=== PATIENT | female | born 1970 | race Caucasian/White ===

== ENCOUNTER 2017-09-24 07:52 | Inpatient (IN) | payer BC, OTHER ==
--- NOTE | 2017-09-24 08:10 | PDOC ---
History of Present Illness <Melissa Estradael - Last Filed: 09/24/17 11:46> - History of Present Illness Initial Comments: 09/24/17 17:25 The patient is a 46 year old female with a significant PMH of lupus who presents to the emergency department with dizziness and nausea beginning at approximately since she woke up this morning. The patient describes the dizziness as if her head or the room is spinning around. She notes that her dizziness is aggravated by movement and has associated headache and nausea. She reports having about 4 or 5 episodes of dizziness and nausea in the past which she came to the ED for, but reports never staying for the full workup as she had no insurance and was concerned about costs. The patient reports not seeing a Neurologist for her symptoms. The patient denies any cold or infections but reports finishing a course of antibiotics about 2 weeks ago s/p tooth procedure. The patient denies chest pain, SOB. Denies fever, chills, nausea, vomit, diarrhea and constipation. Denies dysuria, frequency, urgency and hematuria. Allergies: Penicillins Past surgical history: None reported. Social history: No reported cigarette, alcohol, or drug use. PCP: Dr. Mathur <Gertrudis Wolff - Last Filed: 09/24/17 17:30> - General Chief Complaint: Lightheaded Stated Complaint: HEADACHE Time Seen by Provider: 09/24/17 08:10 NIH Stroke Scale - Last Known Well Date/Time & Onset Date Last Known Well: 09/23/17 Time Last Known Well: 23:00 - Initial Evaluation Level of consciousness: Alert Ask patient the month and their age: Answers both correctly Ask patient to open & close eyes; make fist and let go: Obeys both correctly Best gaze (horizontal eye movement): Normal Visual field testing: No visual field loss Facial paresis (Show teeth/raise eyebrows/close eyes tight): Normal symmetrical movement Motor Function: Left Arm: Normal Motor Function: Right Arm: Normal (extends arm 90 (or 45) degrees for 10 seconds without drift Motor Function: Left Leg: Normal (extends leg 30 degrees for 5 seconds without drift) Motor Function: Right Leg: Normal (extends leg 30 degrees for 5 seconds without drift) Limb Ataxia: Untestable (Joint fused or limb amputated), explain: (pt can not ambulate due to dizziness) Sensory(Use pinprick test arms,legs,trunk,face/side to side): Normal Best language (Describe picture, name items, read sentences): No Aphasia Dysarthria (read several words): Normal articulation Extinction and Inattention: No abnormality - Total Score NIH Stroke Scale Score: 0 <Gertrudis Wolff - Last Filed: 09/24/17 17:30> Past History <Pablo Estrada - Last Filed: 09/24/17 11:46> - Past Medical History COPD: No Other medical history: LUPUS - Surgical History Appendectomy: Yes - Suicide/Smoking/Psychosocial Hx Smoking History: Never smoked Have you smoked in the past 12 months: No Hx Alcohol Use: No Drug/Substance Use Hx: No Substance Use Type: None <Gertrudis Wolff - Last Filed: 09/24/17 17:30> - Past Medical History Allergies/Adverse Reactions: Allergies Allergy/AdvReac Type Severity Reaction Status Date / Time Penicillins Allergy Verified 09/24/17 07:57 Home Medications: Ambulatory Orders NK [No Known Home Medication] 09/24/17 Review of Systems - Review of Systems Comments:: 09/24/17 17:28 GENERAL/CONSTITUTIONAL: No fever or chills. No weakness. HEAD, EYES, EARS, NOSE AND THROAT: No change in vision. No ear pain or discharge. No sore throat. GASTROINTESTINAL: (+) Nausea. No vomiting, diarrhea or constipation. GENITOURINARY: No dysuria, frequency, or change in urination. CARDIOVASCULAR: No chest pain, SOB RESPIRATORY: No cough, wheezing, or hemoptysis. MUSCULOSKELETAL: No joint or muscle swelling or pain. No neck or back pain. SKIN: No rash NEUROLOGIC: (+) Headache. (+) Dizziness. No loss of consciousness or change in strength/sensation. ENDOCRINE: No increased thirst. No abnormal weight change. HEMATOLOGIC/LYMPHATIC: No anemia, easy bleeding, or history of blood clots. ALLERGIC/IMMUNOLOGIC: No hives or skin allergy. <Gertrudis Wolff - Last Filed: 09/24/17 17:30> *Physical Exam - Vital Signs Last Vital Signs Temp Pulse Resp BP Pulse Ox 98.0 F 80 18 132/90 100 09/24/17 07:55 09/24/17 08:52 09/24/17 08:52 09/24/17 08:52 09/24/17 08:52 <Pablo Estrada - Last Filed: 09/24/17 11:46> - Vital Signs Last Vital Signs Temp Pulse Resp BP Pulse Ox 98.0 F 75 20 142/81 100 09/24/17 07:55 09/24/17 07:55 09/24/17 07:55 09/24/17 07:55 09/24/17 07:55 - Physical Exam Comments: 09/24/17 17:29 GENERAL: Awake, alert, and fully oriented, appears uncomfortable HEAD: No signs of trauma EYES: PERRLA, EOMI, sclera anicteric, conjunctiva clear ENT: Auricles normal inspection, hearing grossly normal, nares patent, oropharynx clear without exudates. Moist mucosa NECK: Normal ROM, supple, no lymphadenopathy, JVD, or masses LUNGS: Breath sounds equal, clear to auscultation bilaterally. No wheezes, and no crackles HEART: Regular rate and rhythm, normal S1 and S2, no murmurs, rubs or gallops ABDOMEN: Soft, nontender, normoactive bowel sounds. No guarding, no rebound. No masses EXTREMITIES: Normal range of motion, no edema. No clubbing or cyanosis. No cords , erythema, or tenderness BACK: No midline spinal tenderness in cervical/thoracic/lumbar region NEUROLOGICAL: Normal speech, cranial nerves intact, negative pronator drift, 5/ 5 strength in all 4 extremities, normal sensation to light touch in all 4 extremities, normal cerebellar exam, normal reflexes and tone. SKIN: Warm, Dry, normal turgor, no rashes or lesions noted. Unable to obtain baljeet lemus pike as pt is vertiginous in all positions <Gertrudis Wolff - Last Filed: 09/24/17 17:30> ED Treatment Course - LABORATORY CBC & Chemistry Diagram: 09/24/17 08:45 09/24/17 08:45 - ADDITIONAL ORDERS Additional order review: Laboratory Results 09/24/17 09/24/17 09/24/17 08:45 08:45 08:37 Sodium 138 Potassium 3.5 Chloride 106 Carbon Dioxide 25 Anion Gap 7 L BUN 14 Creatinine 0.5 L Creat Clearance w eGFR > 60 Random Glucose 93 Calcium 8.2 L Total Bilirubin 0.4 D AST 13 L D ALT 23 D Alkaline Phosphatase 65 Troponin I < 0.02 B-Natriuretic Peptide 13.71 Cancelled Total Protein 7.2 Albumin 3.6 Beta HCG, Quant < 1.0 09/24/17 08:45 RBC 4.62 MCV 82.1 MCHC 32.9 RDW 14.1 MPV 10.5 Neutrophils % 73.9 Lymphocytes % 17.5 D Monocytes % 5.9 Eosinophils % 1.8 Basophils % 0.9 - Medications Given in the ED: ED Medications Discontinued Medications Generic Name Dose Route Start Last Admin Trade Name Michelle PRN Reason Stop Dose Admin Meclizine HCl 25 mg 09/24/17 08:36 09/24/17 08:51 Antivert - PO 09/24/17 08:37 25 mg ONCE ONE Administration Metoclopramide HCl 10 mg 09/24/17 08:36 09/24/17 08:52 Reglan Injection - IVPUSH 09/24/17 08:37 10 mg ONCE ONE Administration Sodium Chloride 1,000 ml 09/24/17 08:36 09/24/17 08:51 Normal Saline - IV 09/24/17 08:37 1,000 ml ONCE ONE Administration - Consult/PCP Time Called: 11:40 Case discussed with personal care physician: Krzysztof Mathur - Additional Consults Time Called: 11:30 Consult/PCP: Dr. Valentine (Neurology) <Pablo Estrada - Last Filed: 09/24/17 11:46> - LABORATORY CBC & Chemistry Diagram: 09/24/17 08:45 09/24/17 08:45 <Gertrudis Wolff - Last Filed: 09/24/17 17:30> Medical Decision Making - Medical Decision Making 09/24/17 10:41 46-year-old female with a history of lupus and multiple previous episodes of room spinning dizziness presents with room spinning dizziness upon waking up this morning. She states this episode is worse than her previous episodes. She also is reporting a headache. Vitals are unremarkable. On exam, the patient appears uncomfortable and has consistent dizziness regardless of position. Unclear if this is central or peripheral vertigo as patient has consistent symptoms in every position. Given that she also has lupus, she is at higher risk for ischemic events. Will attempt treatment for peripheral vertigo but we' ll have a low threshold for pursuing a neurologic workup for central etiology. 09/24/17 11:37 Labs unremarkable. Patient reports her symptoms are worse after fluids, Reglan, and meclizine. She continues to have consistent vertiginous symptoms. A CT scan was ordered that on my read appears normal. Given persistent symptoms and history of lupus, will consult neurology and likely order an MRI and admit the patient to observation. Dr. Valentine and Dr. Mathur have been paged, awaiting call back 09/24/17 11:[address] Valentine, he recommends an MRI without contrast and another dose of meclizine. MRI/meclizine ordered. Will also order another liter of NS. 09/24/17 11:[address] Mathur, will admit pt to tele for further management. Case discussed in detail with admitting physician including history, physical exam and ancillary studies. Admitting physician has assumed care for the patient, will follow all pending diagnostics and will complete the evaluation and treatment. <Gertrudis Wolff - Last Filed: 09/24/17 17:30> *DC/Admit/Observation/Transfer <Pablo Estrada - Last Filed: 09/24/17 11:46> - Discharge Dispostion Admit: Yes - Attestations Physician Attestion: 09/24/17 11:55 I, Dr. Gertrudis Wolff MD, attest that this document has been prepared under my direction and personally reviewed by me in its entirety. I further attest, that it accurately reflects all work, treatment, procedures and medical decision -making performed by me. <Gerrtudis Wolff - Last Filed: 09/24/17 17:30> Diagnosis at time of Disposition: Vertigo - Discharge Dispostion Condition at time of disposition: Stable
[2017-09-24] MEDS ORDERED: SODIUM CHLORIDE 0.9% 500 ML INFUS.BAG IV ONE ×2 (08:36→11:43)
[2017-09-24] MEDS ORDERED: MECLIZINE HCL 25 MG TABLET (FP) PO ONE ×2 (08:36→11:43)
[2017-09-24] MEDS ORDERED: METOCLOPRAMIDE HCL INJECTION 10 MG/2 ML VIAL IVPUSH ONE (08:36)
[2017-09-24] MEDS ORDERED: MECLIZINE HCL 25 MG TABLET (FP) ONE ×2 (08:47→11:53)
[2017-09-24] MEDS ORDERED: METOCLOPRAMIDE HCL INJECTION 10 MG/2 ML VIAL ONE (08:47)
[2017-09-24 08:59] LABS: BASO % 0.9 % (0-2.0); EOS % 1.8 % (0-4.5); MCHC 32.9 g/dl (32.0-36.0); MEAN CELL VOLUME 82.1 fl (80-96); MEAN PLT VOLUME 10.5 fl (7.5-11.1); NEUT % 73.9 % (42.8-82.8); RDW 14.1 % (11.6-15.6); WHITE BLOOD COUNT 5.6 K/mm3 (4.0-10.0)
[2017-09-24 09:11] LABS: PLATELET COUNT 35 K/MM3 (134-434)
[2017-09-24 09:17] LABS: ALBUMIN 3.6 g/dl (3.4-5.0); ANION GAP 7 (8-16); BILIRUBIN,TOTAL 0.4 mg/dL (0.2-1.0); CALCIUM 8.2 mg/dL (8.5-10.1); CO2 25 mmol/L (21-32); CREATININE 0.5 mg/dL (0.55-1.02); GLUCOSE,RANDOM 93 mg/dL (74-106); SGPT/ALT 23 U/L (12-78); TOT PROT 7.2 g/dl (6.4-8.2)
[2017-09-24 09:20] LABS: ALK PHOS 65 U/L (45-117); SGOT/AST 13 U/L (15-37); TROPONIN I < 0.02 ng/ml (0.00-0.05)
--- NOTE | 2017-09-24 13:20 | HP ---
Admitting History and Physical - Admission History of Present Illness: 46-year-old female with a history of lupus and multiple previous episodes of room spinning dizziness presents with room spinning dizziness upon waking up this morning. She states this episode is worse than her previous episodes. She also is reporting a headache. Vitals are unremarkable. On exam, the patient appears uncomfortable and has consistent dizziness regardless of position. Unclear if this is central or peripheral vertigo as patient has consistent symptoms in every position. Given that she also has lupus, she is at higher risk for ischemic events. Will attempt treatment for peripheral vertigo but we' ll have a low threshold for pursuing a neurologic workup for central etiology. - Past Medical History Cardiovascular: Yes: HTN Rheumatology: Yes: Lupus - Smoking History Smoking history: Never smoked Have you smoked in the past 12 months: No - Alcohol/Substance Use Hx Alcohol Use: No Home Medications - Allergies Allergies/Adverse Reactions: Allergies Allergy/AdvReac Type Severity Reaction Status Date / Time Penicillins Allergy Verified 09/24/17 07:57 - Home Medications Home Medications: Ambulatory Orders Acetaminophen [Tylenol .Extra-Strength -] 1,000 mg PO Q6H PRN tablet 09/27/17 Cyanocobalamin Vit B-12 Inj. [Vitamin B12 Injection -] 1,000 mcg IM DAILY vial 09/27/17 Triamcinolone 0.1% Ointment [Aristocort 0.1% Ointment -] 1 applic TP BID applic 09/27/17 Review of Systems - Review of Systems Cardiovascular: denies: Chest Pain Respiratory: denies: SOB Gastrointestinal: denies: Abdominal Pain Neurological: reports: Dizziness Physical Examination Vital Signs: Vital Signs Temperature 98.0 F 09/24/17 07:55 Pulse Rate 80 09/24/17 08:52 Respiratory Rate 18 09/24/17 08:52 Blood Pressure 132/90 09/24/17 08:52 O2 Sat by Pulse Oximetry (%) 100 09/24/17 08:52 Cardiovascular: Yes: Regular Rate and Rhythm Respiratory: Yes: Regular, CTA Bilaterally Gastrointestinal: Yes: Normal Bowel Sounds, Soft Edema: No Neurological: Yes: Alert, Oriented, Cran Nerves II-XII Intact. No: Facial Droop Labs: CBC, BMP 09/24/17 08:45 09/24/17 08:45 Imaging - Results Cat Scan: Report Reviewed Problem List - Problems (1) Lupus Assessment/Plan: obtain old records off meds for 3 years Code(s): L93.0 - DISCOID LUPUS ERYTHEMATOSUS (2) Vertigo Assessment/Plan: MECLIZINE MRI NEURO Code(s): R42 - DIZZINESS AND GIDDINESS (3) Headache Assessment/Plan: mri neuro Code(s): R51 - HEADACHE (4) Thrombocytopenia Assessment/Plan: monitor stay off ansaids hem consult b12 level Code(s): D69.6 - THROMBOCYTOPENIA, UNSPECIFIED
[2017-09-24] MEDS: D5-1/2NS+20 MEQ KCL - 20 MEQ/1,000 ML INFUS.BAG IV SCH (17:29)
[2017-09-24 17:48] VITALS: BMI 24.7
[2017-09-24 19:00] LABS: CPK 74 IU/L (26-192); TROPONIN I < 0.02 ng/ml (0.00-0.05)
[2017-09-24 20:28] LABS: URINE APPEARANCE CLEAR; URINE BILIRUBIN NEGATIVE (NEGATIVE); URINE BLOOD 1+ (NEGATIVE); URINE COLOR LTYELLOW; URINE GLUCOSE (UA) NEGATIVE (NEGATIVE); URINE KETONE NEGATIVE (NEGATIVE); URINE LEUK ESTERASE TRACE (NEGATIVE); URINE NITRITE NEGATIVE (NEGATIVE); URINE PROTEIN NEGATIVE (NEGATIVE); URINE UROBILINOGEN NEGATIVE mg/dL (0.2-1.0)
[2017-09-24 20:57] LABS: URINE MUCUS RARE; URINE RBC 2 /hpf (0-3); URINE WBC 3 /hpf (3-5)
[2017-09-24] MEDS: HEPARIN NA (PORCINE) 5,000 UNITS/ML 1ML VIAL SQ SCH (21:19)
[2017-09-24 23:37] LABS: URINE LEUK ESTERASE Negative (NEGATIVE)
[2017-09-25] MEDS: D5-1/2NS+20 MEQ KCL - 20 MEQ/1,000 ML INFUS.BAG IV SCH ×3 (06:07→18:01)
[2017-09-25 09:08] LABS: EOS % 3.8 % (0-4.5); MCH 27.2 pg (25.7-33.7); MCHC 32.8 g/dl (32.0-36.0); MEAN CELL VOLUME 82.9 fl (80-96); MEAN PLT VOLUME 11.4 fl (7.5-11.1); NEUT % 53.9 % (42.8-82.8); RDW 13.9 % (11.6-15.6); WHITE BLOOD COUNT 4.4 K/mm3 (4.0-10.0)
[2017-09-25 09:18] LABS: PLATELET COUNT 29 K/MM3 (134-434)
[2017-09-25 09:26] LABS: ALBUMIN 3.2 g/dl (3.4-5.0); ANION GAP 7 (8-16); BILIRUBIN,TOTAL 0.3 mg/dL (0.2-1.0); CALCIUM 7.6 mg/dL (8.5-10.1); CHOLESTEROL 158 mg/dL (50-200); CO2 23 mmol/L (21-32); CREATININE 0.5 mg/dL (0.55-1.02); GLUCOSE,RANDOM 88 mg/dL (74-106); SGOT/AST 14 U/L (15-37); SGPT/ALT 18 U/L (12-78); TOT PROT 6.5 g/dl (6.4-8.2)
[2017-09-25 09:27] LABS: ALK PHOS 61 U/L (45-117)
[2017-09-25] MEDS: HEPARIN NA (PORCINE) 5,000 UNITS/ML 1ML VIAL SQ SCH (09:31)
--- NOTE | 2017-09-25 12:13 | CONSULT ---
Consult - text type - Consultation Consultation Note: Neurology History of Present Illness The patient is a 46 year old female with a significant PMH of lupus who presents to the emergency department with dizziness and nausea beginning at approximately since she woke up this morning. The patient describes the dizziness as if her head or the room is spinning around. She notes that her dizziness is aggravated by movement and has associated headache and nausea. She reports having about 4 or 5 episodes of dizziness and nausea in the past which she came to the ED for, but reports never staying for the full workup as she had no insurance and was concerned about costs. The patient reports not seeing a Neurologist for her symptoms. The patient denies any cold or infections but reports finishing a course of antibiotics about 2 weeks ago s/p tooth procedure. she completed CT head which showed no acute changes. MRI brain also recommended when I spoke to ER and did not show acute changes. She is without dizzyness this morning but some tension headache symptoms in b/l frontal area. Also getting workup for abdominal discomfort. Past History - Past Medical History COPD: No Other medical history: LUPUS - Surgical History Appendectomy: Yes - Suicide/Smoking/Psychosocial Hx Smoking History: Never smoked Have you smoked in the past 12 months: No Hx Alcohol Use: No Drug/Substance Use Hx: No Substance Use Type: None - Past Medical History Allergies/Adverse Reactions: Allergies Allergy/AdvReac Type Severity Reaction Status Date / Time Penicillins Allergy Verified 09/24/17 07:57 Home Medications: Ambulatory Orders NK [No Known Home Medication] 09/24/17 Review of Systems GENERAL/CONSTITUTIONAL: No fever or chills. No weakness. HEAD, EYES, EARS, NOSE AND THROAT: No change in vision. No ear pain or discharge. No sore throat. GASTROINTESTINAL: (+) Nausea. No vomiting, diarrhea or constipation. GENITOURINARY: No dysuria, frequency, or change in urination. CARDIOVASCULAR: No chest pain, SOB RESPIRATORY: No cough, wheezing, or hemoptysis. MUSCULOSKELETAL: No joint or muscle swelling or pain. No neck or back pain. SKIN: No rash NEUROLOGIC: (+) Headache. (+) Dizziness. No loss of consciousness or change in strength/sensation. ENDOCRINE: No increased thirst. No abnormal weight change. HEMATOLOGIC/LYMPHATIC: No anemia, easy bleeding, or history of blood clots. ALLERGIC/IMMUNOLOGIC: No hives or skin allergy. *Physical Exam Vital Signs Temperature 98 F 09/25/17 10:00 Pulse Rate 70 09/25/17 10:00 Respiratory Rate 18 09/25/17 10:00 Blood Pressure 130/70 09/25/17 10:00 O2 Sat by Pulse Oximetry (%) 100 09/25/17 09:00 GENERAL: Awake, alert, and fully oriented, appears uncomfortable HEAD: No signs of trauma EYES: PERRLA, EOMI, sclera anicteric, conjunctiva clear ENT: Auricles normal inspection, hearing grossly normal, nares patent, oropharynx clear without exudates. Moist mucosa NECK: Normal ROM, supple, no lymphadenopathy, JVD, or masses LUNGS: Breath sounds equal, clear to auscultation bilaterally. No wheezes, and no crackles HEART: Regular rate and rhythm, normal S1 and S2, no murmurs, rubs or gallops ABDOMEN: Soft, nontender, normoactive bowel sounds. No guarding, no rebound. No masses EXTREMITIES: Normal range of motion, no edema. No clubbing or cyanosis. No cords , erythema, or tenderness BACK: No midline spinal tenderness in cervical/thoracic/lumbar region NEUROLOGICAL: Normal speech, cranial nerves intact, negative pronator drift, 5/ 5 strength in all 4 extremities, normal sensation to light touch in all 4 extremities, normal cerebellar exam, normal reflexes and tone. SKIN: Warm, Dry, normal turgor, no rashes or lesions noted. Unable to obtain baljeet lemus pike as pt is vertiginous in all positions Laboratory Results 09/24/17 09/24/17 09/24/17 08:45 08:45 08:37 Sodium 138 Potassium 3.5 Chloride 106 Carbon Dioxide 25 Anion Gap 7 L BUN 14 Creatinine 0.5 L Creat Clearance w eGFR > 60 Random Glucose 93 Calcium 8.2 L Total Bilirubin 0.4 D AST 13 L D ALT 23 D Alkaline Phosphatase 65 Troponin I < 0.02 B-Natriuretic Peptide 13.71 Cancelled Total Protein 7.2 Albumin 3.6 Beta HCG, Quant < 1.0 09/24/17 08:45 RBC 4.62 MCV 82.1 MCHC 32.9 RDW 14.1 MPV 10.5 Neutrophils % 73.9 Lymphocytes % 17.5 D Monocytes % 5.9 Eosinophils % 1.8 Basophils % 0.9 CBCD WBC 4.4 K/mm3 (4.0-10.0) 09/25/17 07:00 RBC 4.32 M/mm3 (3.60-5.2) 09/25/17 07:00 Hgb 11.8 GM/dL (10.7-15.3) 09/25/17 07:00 Hct 35.9 % (32.4-45.2) 09/25/17 07:00 MCV 82.9 fl (80-96) 09/25/17 07:00 MCHC 32.8 g/dl (32.0-36.0) 09/25/17 07:00 RDW 13.9 % (11.6-15.6) 09/25/17 07:00 Plt Count 29 K/MM3 (134-434) L* 09/25/17 07:00 MPV 11.4 fl (7.5-11.1) H 09/25/17 07:00 CMP Sodium 140 mmol/L (136-145) 09/25/17 07:00 Potassium 3.9 mmol/L (3.5-5.1) 09/25/17 07:00 Chloride 110 mmol/L (98-107) H 09/25/17 07:00 Carbon Dioxide 23 mmol/L (21-32) 09/25/17 07:00 Anion Gap 7 (8-16) L 09/25/17 07:00 BUN 7 mg/dL (7-18) D 09/25/17 07:00 Creatinine 0.5 mg/dL (0.55-1.02) L 09/25/17 07:00 Creat Clearance w eGFR > 60 (>60) 09/25/17 07:00 Calcium 7.6 mg/dL (8.5-10.1) L 09/25/17 07:00 Total Bilirubin 0.3 mg/dL (0.2-1.0) D 09/25/17 07:00 AST 14 U/L (15-37) L 09/25/17 07:00 ALT 18 U/L (12-78) D 09/25/17 07:00 Alkaline Phosphatase 61 U/L (45-117) 09/25/17 07:00 Total Protein 6.5 g/dl (6.4-8.2) 09/25/17 07:00 Albumin 3.2 g/dl (3.4-5.0) L 09/25/17 07:00 CT head reviewed MRI brain reviewed Medical Decision Making 46 year old female with a significant PMH of lupus who presents to the emergency department with dizziness and nausea beginning at approximately since she woke up this morning. The patient describes the dizziness as if her head or the room is spinning around. She notes that her dizziness is aggravated by movement and has associated headache and nausea. She reports having about 4 or 5 episodes of dizziness and nausea in the past which she came to the ED for, but reports never staying for the full workup as she had no insurance and was concerned about costs. MRI brain also recommended when I spoke to ER and did not show acute changes. She is without dizzyness this morning but some tension headache symptoms in b/l frontal area. Also getting workup for abdominal discomfort. Relaxation and hydration recommended for headache. Can give tylenol if does not interfere with GI workup. Meclezine as needed for dizzyness. No sudden head movements. Discussed with patient and in detail at bedside.
--- NOTE | 2017-09-25 12:20 | PN ---
Progress Note, Physician History of Present Illness: feels better vertigoresolved rt sided headache - Current Medication List Current Medications: Active Medications Acetaminophen (Tylenol -) 1,000 mg PO Q6H PRN PRN Reason: FEVER OR PAIN Potassium Chloride/Dextrose/Sod Cl (D5-1/2ns+20 Meq Kcl -) 20 meq in 1,000 mls @ 83 mls/hr IV ASDIR ROBYN Last Admin: 09/25/17 06:07 Dose: 83 mls/hr - Objective Vital Signs: Vital Signs Temperature 98 F 09/25/17 10:00 Pulse Rate 70 09/25/17 10:00 Respiratory Rate 18 09/25/17 10:00 Blood Pressure 130/70 09/25/17 10:00 O2 Sat by Pulse Oximetry (%) 100 09/25/17 09:00 Cardiovascular: Yes: Regular Rate and Rhythm Respiratory: Yes: Regular, CTA Bilaterally Gastrointestinal: Yes: Normal Bowel Sounds, Soft Extremities: Yes: Erythema Edema: No Labs: CBC, BMP 09/25/17 07:00 09/25/17 07:00 Problem List - Problems (1) Lupus Assessment/Plan: obtain old records off meds for 3 years rheumotology consult Code(s): L93.0 - DISCOID LUPUS ERYTHEMATOSUS (2) Vertigo Assessment/Plan: MECLIZINE MRI NO ACUTE PATH NEURO Code(s): R42 - DIZZINESS AND GIDDINESS (3) Headache Assessment/Plan: mri--nad neuro tylenol Code(s): R51 - HEADACHE (4) Thrombocytopenia Assessment/Plan: monitor hem consult avoid ansaids us of abd Code(s): D69.6 - THROMBOCYTOPENIA, UNSPECIFIED
[2017-09-25 13:04] LABS: THYROID STIMULATING HORMONE 1.17 uIU/ml (0.358-3.74)
[2017-09-25] MEDS: ACETAMINOPHEN 500 MG TABLET (FP) PO PRN ×2 (14:38→21:29)
[2017-09-25] MEDS: TRIAMCINOLONE ACET 0.1% OINT 15 GM TUBE TP SCH ×2 (15:43→21:32)
[2017-09-25 23:03] LABS: URINE APPEARANCE CLEAR; URINE BILIRUBIN NEGATIVE (NEGATIVE); URINE BLOOD 1+ (NEGATIVE); URINE COLOR STRAW; URINE GLUCOSE (UA) NEGATIVE (NEGATIVE); URINE KETONE NEGATIVE (NEGATIVE); URINE LEUK ESTERASE TRACE (NEGATIVE); URINE NITRITE NEGATIVE (NEGATIVE); URINE PROTEIN NEGATIVE (NEGATIVE); URINE UROBILINOGEN NEGATIVE mg/dL (0.2-1.0)
[2017-09-25 23:05] LABS: URINE MUCUS RARE; URINE RBC 1 /hpf (0-3); URINE WBC 1 /hpf (3-5)
--- NOTE | 2017-09-26 08:11 | PN ---
Progress Note, Physician History of Present Illness: feels better vertigo resolved rt sided headache - Current Medication List Current Medications: Active Medications Acetaminophen (Tylenol -) 1,000 mg PO Q6H PRN PRN Reason: FEVER OR PAIN Last Admin: 09/25/17 21:29 Dose: 1,000 mg Cyanocobalamin (Vitamin B12 Injection -) 1,000 mcg IM DAILY [facility] Triamcinolone Acetonide (Aristocort 0.1% Ointment -) 1 applic TP BID ROBYN Last Admin: 09/25/17 21:32 Dose: 1 applic - Objective Vital Signs: Vital Signs Temperature 97.9 F 09/26/17 05:00 Pulse Rate 80 09/26/17 05:00 Respiratory Rate 18 09/26/17 05:00 Blood Pressure 122/71 09/26/17 05:00 O2 Sat by Pulse Oximetry (%) 100 09/25/17 21:00 Cardiovascular: Yes: S1, S2 Respiratory: Yes: Regular, CTA Bilaterally Gastrointestinal: Yes: Normal Bowel Sounds, Soft Neurological: Yes: Alert, Oriented Labs: CBC, BMP 09/25/17 07:00 Problem List - Problems (1) Lupus Assessment/Plan: obtain old records off meds for 3 years rheumotolgy consult Code(s): L93.0 - DISCOID LUPUS ERYTHEMATOSUS (2) Vertigo Assessment/Plan: MECLIZINE MRI NEURO Code(s): R42 - DIZZINESS AND GIDDINESS (3) Headache Assessment/Plan: mri negative for acute ds neuro noted tylenol Code(s): R51 - HEADACHE (4) Thrombocytopenia Assessment/Plan: monitor stay off ansaids hem consult b12 level Code(s): D69.6 - THROMBOCYTOPENIA, UNSPECIFIED
[2017-09-26 08:12] LABS: EOS % 3.2 % (0-4.5); MCH 27.4 pg (25.7-33.7); MCHC 33.3 g/dl (32.0-36.0); MEAN CELL VOLUME 82.5 fl (80-96); MEAN PLT VOLUME 10.3 fl (7.5-11.1); NEUT % 60.4 % (42.8-82.8); PLATELET COUNT 38 K/MM3 (134-434); RDW 13.9 % (11.6-15.6); WHITE BLOOD COUNT 5.3 K/mm3 (4.0-10.0)
[2017-09-26 08:31] LABS: INR 1.13 (0.82-1.09); PROTHROMBIN TIME (PATIENT) 12.8 SEC (9.98-11.88)
[2017-09-26 08:33] LABS: ACTIVATED PTT 71.5 SECONDS (26.9-34.4)
[2017-09-26] MEDS: CYANOCOBALAMIN (VITAMIN B-12) 1000 MCG/1 ML VIAL IM SCH (09:31)
[2017-09-26] MEDS: TRIAMCINOLONE ACET 0.1% OINT 15 GM TUBE TP SCH ×2 (09:32→21:57)
--- NOTE | 2017-09-26 09:44 | PN ---
Progress Note (short form) - Note Progress Note: Neurology History of Present Illness The patient is a 46 year old female with a significant PMH of lupus who presents to the emergency department with dizziness and nausea beginning at approximately since she woke up this morning. The patient describes the dizziness as if her head or the room is spinning around. She notes that her dizziness is aggravated by movement and has associated headache and nausea. She reports having about 4 or 5 episodes of dizziness and nausea in the past which she came to the ED for, but reports never staying for the full workup as she had no insurance and was concerned about costs. The patient reports not seeing a Neurologist for her symptoms. The patient denies any cold or infections but reports finishing a course of antibiotics about 2 weeks ago s/p tooth procedure. she completed CT head which showed no acute changes. MRI brain also completed and did not show acute changes. She is without dizzyness this morning but some tension headache symptoms in b/l frontal area. Spoke to nurse as well and decreased platelet count, hematology consulted. Reviewed PCP note. Otherwise , stable neurologically at this time. Active Medications Acetaminophen (Tylenol -) 1,000 mg PO Q6H PRN PRN Reason: FEVER OR PAIN Last Admin: 09/25/17 21:29 Dose: 1,000 mg Cyanocobalamin (Vitamin B12 Injection -) 1,000 mcg IM DAILY [facility] Last Admin: 09/26/17 09:31 Dose: 1,000 mcg Triamcinolone Acetonide (Aristocort 0.1% Ointment -) 1 applic TP BID [facility] Last Admin: 09/26/17 09:32 Dose: 1 applic *Physical Exam Vital Signs Temperature 97.9 F 09/26/17 05:00 Pulse Rate 80 09/26/17 05:00 Respiratory Rate 18 09/26/17 05:00 Blood Pressure 122/71 09/26/17 05:00 O2 Sat by Pulse Oximetry (%) 100 09/25/17 21:00 GENERAL: Awake, alert, and fully oriented, appears uncomfortable HEAD: No signs of trauma EYES: PERRLA, EOMI, sclera anicteric, conjunctiva clear ENT: Auricles normal inspection, hearing grossly normal, nares patent, oropharynx clear without exudates. Moist mucosa NECK: Normal ROM, supple, no lymphadenopathy, JVD, or masses LUNGS: Breath sounds equal, clear to auscultation bilaterally. No wheezes, and no crackles HEART: Regular rate and rhythm, normal S1 and S2, no murmurs, rubs or gallops ABDOMEN: Soft, nontender, normoactive bowel sounds. No guarding, no rebound. No masses EXTREMITIES: Normal range of motion, no edema. No clubbing or cyanosis. No cords , erythema, or tenderness BACK: No midline spinal tenderness in cervical/thoracic/lumbar region NEUROLOGICAL: Normal speech, cranial nerves intact, negative pronator drift, 5/ 5 strength in all 4 extremities, normal sensation to light touch in all 4 extremities, normal cerebellar exam, normal reflexes and tone. SKIN: Warm, Dry, normal turgor, no rashes or lesions noted. Unable to obtain baljeet lemus pike as pt is vertiginous in all positions CBCD WBC 5.3 K/mm3 (4.0-10.0) 09/26/17 06:00 RBC 4.66 M/mm3 (3.60-5.2) 09/26/17 06:00 Hgb 12.8 GM/dL (10.7-15.3) 09/26/17 06:00 Hct 38.4 % (32.4-45.2) 09/26/17 06:00 MCV 82.5 fl (80-96) 09/26/17 06:00 MCHC 33.3 g/dl (32.0-36.0) 09/26/17 06:00 RDW 13.9 % (11.6-15.6) 09/26/17 06:00 Plt Count 38 K/MM3 (134-434) L D 09/26/17 06:00 MPV 10.3 fl (7.5-11.1) 09/26/17 06:00 CMP Sodium 140 mmol/L (136-145) 09/25/17 07:00 Potassium 3.9 mmol/L (3.5-5.1) 09/25/17 07:00 Chloride 110 mmol/L (98-107) H 09/25/17 07:00 Carbon Dioxide 23 mmol/L (21-32) 09/25/17 07:00 Anion Gap 7 (8-16) L 09/25/17 07:00 BUN 7 mg/dL (7-18) D 09/25/17 07:00 Creatinine 0.5 mg/dL (0.55-1.02) L 09/25/17 07:00 Creat Clearance w eGFR > 60 (>60) 09/25/17 07:00 Calcium 7.6 mg/dL (8.5-10.1) L 09/25/17 07:00 Total Bilirubin 0.3 mg/dL (0.2-1.0) D 09/25/17 07:00 AST 14 U/L (15-37) L 09/25/17 07:00 ALT 18 U/L (12-78) D 09/25/17 07:00 Alkaline Phosphatase 61 U/L (45-117) 09/25/17 07:00 Total Protein 6.5 g/dl (6.4-8.2) 09/25/17 07:00 Albumin 3.2 g/dl (3.4-5.0) L 09/25/17 07:00 CT head reviewed MRI brain reviewed Medical Decision Making 46 year old female with a significant PMH of lupus who presents to the emergency department with dizziness and nausea beginning at approximately since she woke up this morning. The patient describes the dizziness as if her head or the room is spinning around. She notes that her dizziness is aggravated by movement and has associated headache and nausea. She reports having about 4 or 5 episodes of dizziness and nausea in the past which she came to the ED for, but reports never staying for the full workup as she had no insurance and was concerned about costs. MRI brain also recommended when I spoke to ER and did not show acute changes. She is without dizzyness this morning but some tension headache symptoms in b/l frontal area. Also getting workup for abdominal discomfort. Relaxation and hydration recommended for headache. Can give tylenol if does not interfere with GI workup. Meclezine as needed for dizzyness. No sudden head movements. Thrombocytopenia noted on labs, hematology consulted. Patient otherwise neurologically stable at this time.
[2017-09-26] MEDS: ACETAMINOPHEN 500 MG TABLET (FP) PO PRN ×2 (10:35→21:07)
[2017-09-26 16:42] LABS: URINE LEUK ESTERASE Negative (NEGATIVE)
--- NOTE | 2017-09-26 20:17 | CONSULT ---
Consult Consult Specialty:: Rheumatology - History of Present Illness History of Present Illness: 46 year old female with a significant history of lupus and anti-phospholipid syndrome, admitted with dizziness and nausea. HPI. The patient reports she has been having dizziness for 1 month. On the day of admission she developed probable vertigo and nausea. In the past she had 4 or 5 similar episodes that resolved spontaneously. Since admission the dizziness improved. Probable systemic lupus erythematosus (SLE) and anti-phospholipid syndrome (APL) . Ten years ago she developed hair loss. The patient has history of Gesta 8, Para 4, Miscarriages 3 (during 1st trimester) and 1. In 2011 she was seen by another technology professional (Dr. Vasques) . At that time she developed pruritic skin rash , fatigue malaise and arthralgia in shoulders, wrists and hands. She was started on Hydroxychloroquine resulting in progression of symptoms, therefore the patient discontinued the medication. Later on she was seen by another technology professional (Dr. Hoyt) who diagnosed fibromyalgia in addition of SLE and APL. She has not have follow-up by rheumatology in more than 3 years, Her father had DVT X3 and a CVA. Laboratory work-up from 01/30/15 revealed a CBC with a WBC of 4.4, Hgb 12.6, HT 37,8 and platelets 92. Creatinine was 0.5. Liver function tests and urinalysis were normal. NATALIE was 1:160 with peripheral pattern. 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 Complement 3 was decreased (72) and C4 normal (17) PTT-LA was 83 and lupus anticoagulant was present (DRVVT 90 and hexagonal phase positive). Anti-cardiolipin antibody Ig (N<14), IgA :32 (N<11) and IgM 42 (N<12). Hzop-0bzajqmsgkxem-L (N<20): IgA: 49, IgM >150 and IgG 20. Phosphatidyl serine IgG and IgM were elevated (51 each). At the present time she reports hair loss, skin rash in the right leg, occasional oral ulcers, and intermittent aches and pains. Work-up in the hospital revealed urianlysis with blood 1+ and no protein. Platelets decreased (35, 29 and 38) - History Source History Provided By: Patient, Significant Other, Medical Record Limitations to Obtaining History: No Limitations - Past Medical History Cardio/Vascular: Yes: HTN ...LMP: 12/07/16 ...: No Rheumatology: Yes: Lupus, Other (Anti-phospholipid syndrome) - Alcohol/Substance Use Hx Alcohol Use: No - Smoking History Smoking history: Never smoked Have you smoked in the past 12 months: No Home Medications - Allergies Allergies/Adverse Reactions: Allergies Allergy/AdvReac Type Severity Reaction Status Date / Time Penicillins Allergy Verified 09/24/17 07:57 - Home Medications Home Medications: Ambulatory Orders NK [No Known Home Medication] 09/24/17 Family Disease History - Family Disease History Family Disease History: Other: Father (DVT X 3 and CVA) Review of Systems - Review of Systems Constitutional: reports: Malaise Eyes: reports: No Symptoms HENT: reports: No Symptoms Neck: reports: No Symptoms Cardiovascular: reports: No Symptoms Respiratory: reports: No Symptoms Gastrointestinal: reports: Nausea, Vomiting Musculoskeletal: reports: Joint Pain Integumentary: reports: Rash Physical Exam Vital Signs: Vital Signs Temperature 98.2 F 09/26/17 17:00 Pulse Rate 77 09/26/17 17:00 Respiratory Rate 20 09/26/17 17:00 Blood Pressure 108/70 09/26/17 17:00 O2 Sat by Pulse Oximetry (%) 100 09/26/17 09:00 Constitutional: Yes: Mild Distress Eyes: Yes: WNL HENT: Yes: WNL Neck: Yes: WNL Cardiovascular: Yes: WNL Respiratory: Yes: WNL Gastrointestinal: Yes: WNL Musculoskeletal: Yes: Other (No active joints.) Integumentary: Yes: Other (Macular rash in the right leg. distal to the knee.) Labs: CBC, BMP 09/26/17 06:00 09/25/17 07:00 Laboratory Tests 09/25/17 09/25/17 09/25/17 07:00 12:22 22:50 ESR PTT (Actin FS) Calcium 7.6 L Total Bilirubin 0.3 D AST 14 L ALT 18 D Alkaline Phosphatase 61 TSH 1.17 Urine Color Straw Urine Appearance Clear Urine pH 7.0 Ur Specific [place] 1.014 Urine Protein Negative Urine Glucose (UA) Negative Urine Ketones Negative Urine Blood 1+ H Urine Nitrite Negative Urine Bilirubin Negative Urine Urobilinogen Negative Ur Leukocyte Esterase Negative Urine WBC (Auto) 1 Urine RBC (Auto) 1 09/26/17 09/26/17 06:00 06:00 ESR 24 H PTT (Actin FS) 71.5 H Calcium Total Bilirubin AST ALT Alkaline Phosphatase TSH Urine Color Urine Appearance Urine pH Ur Specific [place] Urine Protein Urine Glucose (UA) Urine Ketones Urine Blood Urine Nitrite Urine Bilirubin Urine Urobilinogen Ur Leukocyte Esterase Urine WBC (Auto) Urine RBC (Auto) Problem List - Problems (1) Anti-phospholipid syndrome Assessment/Plan: 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 Even though she has a positive NATALIE and low C3, there is no evidence of other organ involvement, therefor she has possible lupus. She has had several episodes of acute vertigo - it is important to determine if this culd be related to thrombosis (TIA). Plan: Hematology consult pending - to discuss management of thrombocytopenia. Work-up by neurology. Code(s): D68.61 - ANTIPHOSPHOLIPID SYNDROME
--- NOTE | 2017-09-26 23:14 | CONSULT ---
Consult - text type - Consultation Consultation Note: 46 year old female with a significant history of lupus and anti-phospholipid syndrome, admitted with headaches, dizziness and nausea. HPI. The patient reports she has been having dizziness for 1 month. On the day of admission she developed probable vertigo and nausea. In the past she had 4 or 5 similar episodes that resolved spontaneously. Since admission the dizziness improved. Ten years ago she developed hair loss. The patient has history of Gesta 8, Para 4, Miscarriages 3 (during 1st trimester) and 1. In 2011 she was seen by another tax staff accountant (Dr. Vasques) . At that time she developed pruritic skin rash , fatigue malaise and arthralgia in shoulders, wrists and hands. She was started on Hydroxychloroquine resulting in progression of symptoms, therefore the patient discontinued the medication. Later on she was seen by another tax staff accountant (Dr. Hoyt) who diagnosed fibromyalgia in addition of SLE and APL. She has not have follow-up by rheumatology in more than 3 years, Her father had DVT X3 and a CVA. PTT-LA was 83 and lupus anticoagulant was present (DRVVT 90 and hexagonal phase positive). Anti-cardiolipin antibody Ig (N<14), IgA :32 (N<11) and IgM 42 (N<12). Zglf-[id number]-U (N<20): IgA: 49, IgM >150 and IgG 20. Phosphatidyl serine IgG and IgM were elevated (51 each). At the present time she reports hair loss, skin rash in the right leg, occasional oral ulcers, and intermittent aches and pains. Work-up in the hospital revealed urianlysis with blood 1+ and no protein. Platelets decreased (35, 29 and 38) CT head and MRI brain neg. - History Source History Provided By: Patient, Significant Other, Medical Record Limitations to Obtaining History: No Limitations - Past Medical History Cardio/Vascular: Yes: HTN ...LMP: 12/07/16 ...: No Rheumatology: Yes: Lupus, Other (Anti-phospholipid syndrome) - Alcohol/Substance Use Hx Alcohol Use: No - Smoking History Smoking history: Never smoked Have you smoked in the past 12 months: No Home Medications - Allergies Allergies/Adverse Reactions: Allergies Allergy/AdvReac Type Severity Reaction Status Date / Time Penicillins Allergy Verified 09/24/17 07:57 - Home Medications Home Medications: Ambulatory Orders NK [No Known Home Medication] 09/24/17 Family Disease History - Family Disease History Family Disease History: Other: Father (DVT X 3 and CVA) Review of Systems - Review of Systems Constitutional: reports: Malaise Eyes: reports: No Symptoms HENT: reports: No Symptoms Neck: reports: No Symptoms Cardiovascular: reports: No Symptoms Respiratory: reports: No Symptoms Gastrointestinal: reports: Nausea, Vomiting Musculoskeletal: reports: Joint Pain Integumentary: reports: Rash Physical Exam Vital Signs: Vital Signs Temperature 98.2 F 09/26/17 17:00 Pulse Rate 77 09/26/17 17:00 Respiratory Rate 20 09/26/17 17:00 Blood Pressure 108/70 09/26/17 17:00 O2 Sat by Pulse Oximetry (%) 100 09/26/17 09:00 Constitutional: Yes: Mild Distress Eyes: Yes: WNL HENT: Yes: WNL Neck: Yes: WNL Cardiovascular: Yes: WNL Respiratory: Yes: WNL Gastrointestinal: Yes: WNL Musculoskeletal: Yes: Other (No active joints.) Integumentary: Yes: Other (Macular rash in the right leg. distal to the knee.) Labs: CBC, BMP 09/26/17 06:00 09/25/17 07:00 Laboratory Tests 09/25/17 09/25/17 09/25/17 07:00 12:22 22:50 ESR PTT (Actin FS) Calcium 7.6 L Total Bilirubin 0.3 D AST 14 L ALT 18 D Alkaline Phosphatase 61 TSH 1.17 Urine Color Straw Urine Appearance Clear Urine pH 7.0 Ur Specific [place] 1.014 Urine Protein Negative Urine Glucose (UA) Negative Urine Ketones Negative Urine Blood 1+ H Urine Nitrite Negative Urine Bilirubin Negative Urine Urobilinogen Negative Ur Leukocyte Esterase Negative Urine WBC (Auto) 1 Urine RBC (Auto) 1 09/26/17 09/26/17 06:00 06:00 ESR 24 H PTT (Actin FS) 71.5 H Calcium Total Bilirubin AST ALT Alkaline Phosphatase TSH Urine Color Urine Appearance Urine pH Ur Specific [place] Urine Protein Urine Glucose (UA) Urine Ketones Urine Blood Urine Nitrite Urine Bilirubin Urine Urobilinogen Ur Leukocyte Esterase Urine WBC (Auto) Urine RBC (Auto) Problem List - Problems (1) Anti-phospholipid syndrome Assessment/Plan: 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 She has had several episodes of acute vertigo /headache ct head mri brain neg family h/o dvt/strokes. no personal h/o thrombosis but had miscarriages thrombocytopenia--- baseline 70s to 90, now 38 we usually treat thrombocytopenia if platelets < 20-25,000 needs close moniotoring of platelets as outpatient will review peripheral smear check LDH/haptoglobin/Gavi ESR-24, B12 249 Vertigo/headaches--neuro f/u ? MRA/MRV needs close f/u with rheumatology regarding treatment of APL, fibromyalgia, lupus has been off MTX for 3 yrs. HAd been on plaquenil
--- NOTE | 2017-09-27 01:37 | EKG ---
Test Reason : Blood Pressure : / mmHG Vent. Rate : 078 BPM Atrial Rate : 078 BPM P-R Int : 168 ms QRS Dur : 082 ms QT Int : 296 ms P-R-T Axes : 049 054 045 degrees QTc Int : 337 ms NORMAL SINUS RHYTHM NONSPECIFIC T WAVE ABNORMALITY ABNORMAL ECG WHEN COMPARED WITH ECG OF 24 SEP 2017 NO SIGNIFICANT CHANGE WAS FOUND Confirmed by ASHISH WEST MD ([id number]) on 09/27/2017 1:36:40 AM Referred By: Kitty FORDE Confirmed By:ASHISH WEST MD
--- NOTE | 2017-09-27 01:45 | EKG ---
Test Reason : Blood Pressure : / mmHG Vent. Rate : 072 BPM Atrial Rate : 072 BPM P-R Int : 166 ms QRS Dur : 082 ms QT Int : 408 ms P-R-T Axes : 042 042 041 degrees QTc Int : 446 ms NORMAL SINUS RHYTHM NONSPECIFIC T WAVE ABNORMALITY ABNORMAL ECG WHEN COMPARED WITH ECG OF 17-MAR-1999 09:24, T WAVE VARIATION Confirmed by ASHISH WEST MD ([id number]) on 09/27/2017 1:44:55 AM Referred By: Confirmed By:ASHISH WEST MD
[2017-09-27] MEDS: ACETAMINOPHEN 500 MG TABLET (FP) PO PRN (06:30)
[2017-09-27 07:40] LABS: BASO % 0.9 % (0-2.0); EOS % 2.7 % (0-4.5); MCH 27.3 pg (25.7-33.7); MCHC 33.1 g/dl (32.0-36.0); MEAN CELL VOLUME 82.6 fl (80-96); MEAN PLT VOLUME 10.2 fl (7.5-11.1); NEUT % 62.5 % (42.8-82.8); RDW 13.8 % (11.6-15.6); WHITE BLOOD COUNT 5.7 K/mm3 (4.0-10.0)
[2017-09-27 07:45] LABS: PLATELET COUNT 34 K/MM3 (134-434)
[2017-09-27 07:56] LABS: C-REACTIVE PROTEIN < 0.3 MG/DL (0.00-0.3)
[2017-09-27 07:59] LABS: LDH 157 U/L (84-246)
[2017-09-27 08:00] LABS: THYROID STIMULATING HORMONE 2.09 uIU/ml (0.358-3.74)
--- NOTE | 2017-09-27 08:31 | DS ---
Physical Examination Vital Signs: Vital Signs Temperature 98.1 F 09/27/17 06:00 Pulse Rate 70 09/27/17 06:00 Respiratory Rate 20 09/27/17 06:00 Blood Pressure 106/70 09/27/17 06:00 O2 Sat by Pulse Oximetry (%) 99 09/26/17 21:00 Cardiovascular: Yes: Regular Rate and Rhythm Respiratory: Yes: Regular, CTA Bilaterally Gastrointestinal: Yes: Normal Bowel Sounds, Soft Edema: No Neurological: Yes: Alert, Oriented Labs: CBC, BMP 09/25/17 07:00 Discharge Summary Reason For Visit: VERTIGO Current Active Problems Anti-phospholipid syndrome (Acute) Headache (Acute) Lupus (Acute) Thrombocytopenia (Acute) Vertigo (Acute) Hospital Course: 46 year old female with a significant history of lupus and anti-phospholipid syndrome, admitted with headaches, dizziness and nausea. HPI. The patient reports she has been having dizziness for 1 month. On the day of admission she developed probable vertigo and nausea. In the past she had 4 or 5 similar episodes that resolved spontaneously. Since admission the dizziness improved. Ten years ago she developed hair loss. The patient has history of Gesta 8, Para 4, Miscarriages 3 (during 1st trimester) and 1. In 2011 she was seen by another superintendent pier (Dr. Vasques) . At that time she developed pruritic skin rash , fatigue malaise and arthralgia in shoulders, wrists and hands. She was started on Hydroxychloroquine resulting in progression of symptoms, therefore the patient discontinued the medication. Later on she was seen by another superintendent pier (Dr. Hoyt) who diagnosed fibromyalgia in addition of SLE and APL. She has not have follow-up by rheumatology in more than 3 years, Her father had DVT X3 and a CVA. PTT-LA was 83 and lupus anticoagulant was present (DRVVT 90 and hexagonal phase positive). Anti-cardiolipin antibody Ig (N<14), IgA :32 (N<11) and IgM 42 (N<12). Ecgf-[id number]-R (N<20): IgA: 49, IgM >150 and IgG 20. Phosphatidyl serine IgG and IgM were elevated (51 each). At the present time she reports hair loss, skin rash in the right leg, occasional oral ulcers, and intermittent aches and pains. Work-up in the hospital revealed urianlysis with blood 1+ and no protein. Platelets decreased (35, 29 and 38) CT head and MRI brain neg. 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 She has had several episodes of acute vertigo /headache ct head mri brain neg family h/o dvt/strokes. no personal h/o thrombosis but had miscarriages thrombocytopenia--- baseline 70s to 90, now 38 we usually treat thrombocytopenia if platelets < 20-25,000 needs close moniotoring of platelets as outpatient will review peripheral smear check LDH/haptoglobin/Gavi ESR-24, B12 249 Vertigo/headaches--neuro f/u ? MRA/MRV--will pursue as outpatient needs close f/u with rheumatology regarding treatment of APL, fibromyalgia, lupus has been off MTX for 3 yrs. HAd been on plaquenil Condition: Stable - Instructions Referrals: Krzysztof Mathur MD [Primary Care Provider] - 1 Week - Home Medications Comprehensive Discharge Medication List: Ambulatory Orders NK [No Known Home Medication] 09/24/17
[2017-09-27 08:35] LABS: FREE T4 0.86 ng/dl (0.76-1.46)
--- NOTE | 2017-09-27 09:59 | PN ---
Progress Note (short form) - Note Progress Note: Neurology History of Present Illness The patient is a 46 year old female with a significant PMH of lupus who presents to the emergency department with dizziness and nausea beginning at approximately since she woke up this morning. The patient describes the dizziness as if her head or the room is spinning around. She notes that her dizziness is aggravated by movement and has associated headache and nausea. She reports having about 4 or 5 episodes of dizziness and nausea in the past which she came to the ED for, but reports never staying for the full workup as she had no insurance and was concerned about costs. The patient reports not seeing a Neurologist for her symptoms. The patient denies any cold or infections but reports finishing a course of antibiotics about 2 weeks ago s/p tooth procedure. she completed CT head which showed no acute changes. MRI brain also completed and did not show acute changes. She is without dizzyness this morning but some tension headache symptoms in b/l frontal area. Spoke to nurse as well and decreased platelet count, hematology consulted, possibly Lupus and awaiting Rheum input. Patient has multiple family member with vascular events including MD, CVA, and therefore patient does have increased risk. Otherwise, stable neurologically at this time. Active Medications Acetaminophen (Tylenol -) 1,000 mg PO Q6H PRN PRN Reason: FEVER OR PAIN Last Admin: 09/27/17 06:30 Dose: 1,000 mg Cyanocobalamin (Vitamin B12 Injection -) 1,000 mcg IM DAILY [facility] [place] Last Admin: 09/26/17 09:31 Dose: 1,000 mcg Triamcinolone Acetonide (Aristocort 0.1% Ointment -) 1 applic TP BID [facility] [place] Last Admin: 09/26/17 21:57 Dose: Not Given *Physical Exam Vital Signs Period Temp Pulse Resp BP Sys/Fleming Pulse Ox Last 24 Hr 97.8 F-98.4 F 65-77 20-20 106-117/67-74 99 GENERAL: Awake, alert, and fully oriented, appears uncomfortable HEAD: No signs of trauma EYES: PERRLA, EOMI, sclera anicteric, conjunctiva clear ENT: Auricles normal inspection, hearing grossly normal, nares patent, oropharynx clear without exudates. Moist mucosa NECK: Normal ROM, supple, no lymphadenopathy, JVD, or masses LUNGS: Breath sounds equal, clear to auscultation bilaterally. No wheezes, and no crackles HEART: Regular rate and rhythm, normal S1 and S2, no murmurs, rubs or gallops ABDOMEN: Soft, nontender, normoactive bowel sounds. No guarding, no rebound. No masses EXTREMITIES: Normal range of motion, no edema. No clubbing or cyanosis. No cords , erythema, or tenderness BACK: No midline spinal tenderness in cervical/thoracic/lumbar region NEUROLOGICAL: Normal speech, cranial nerves intact, negative pronator drift, 5/ 5 strength in all 4 extremities, normal sensation to light touch in all 4 extremities, normal cerebellar exam, normal reflexes and tone. SKIN: Warm, Dry, normal turgor, no rashes or lesions noted. Unable to obtain baljeet lemus pike as pt is vertiginous in all positions Vital Signs Temperature 98.1 F 09/27/17 06:00 Pulse Rate 70 09/27/17 06:00 Respiratory Rate 20 09/27/17 06:00 Blood Pressure 106/70 09/27/17 06:00 O2 Sat by Pulse Oximetry (%) 99 09/26/17 21:00 CT head reviewed MRI brain reviewed Medical Decision Making 46 year old female with a significant PMH of lupus who presents to the emergency department with dizziness and nausea beginning at approximately since she woke up this morning. The patient describes the dizziness as if her head or the room is spinning around. She notes that her dizziness is aggravated by movement and has associated headache and nausea. She reports having about 4 or 5 episodes of dizziness and nausea in the past which she came to the ED for, but reports never staying for the full workup as she had no insurance and was concerned about costs. MRI brain also recommended when I spoke to ER and did not show acute changes. She is without dizzyness this morning but some tension headache symptoms in b/l frontal area. Also getting workup for abdominal discomfort. Relaxation and hydration recommended for headache. Can give tylenol if does not interfere with GI workup. Meclezine as needed for dizzyness. No sudden head movements. Thrombocytopenia noted on labs, hematology consulted and now awaiting rheum input regarding Lupus. Patient otherwise neurologically stable at this time.
[2017-09-27] MEDS: CYANOCOBALAMIN (VITAMIN B-12) 1000 MCG/1 ML VIAL IM SCH (10:04)
[2017-09-27] MEDS: TRIAMCINOLONE ACET 0.1% OINT 15 GM TUBE TP SCH (10:04)
[2017-09-27 13:49] LABS: ERYTHROCYTE SEDIMENTATION RATE 22 mm/hr (0-20)
--- NOTE | 2017-09-27 17:12 | PN ---
Progress Note (short form) - Note Progress Note: Patient seen and examined. No evidence of bleeding. chart reviewed O/E: NAD NCAT rrr CTA b/l Benign abdomen Last Vital Signs Temp Pulse Resp BP Pulse Ox 98.7 F 77 18 117/72 98 09/27/17 15:44 09/27/17 15:44 09/27/17 15:44 09/27/17 15:44 09/27/17 08:00 CBC, BMP 09/25/17 07:00 Current Medications Generic Name Dose Route Start Last Admin Trade Name Freq PRN Reason Stop Dose Admin Acetaminophen 1,000 mg 09/25/17 11:41 09/27/17 06:30 Tylenol - PO 1,000 mg Q6H PRN Administration FEVER OR PAIN Cyanocobalamin 1,000 mcg 09/26/17 10:00 09/27/17 10:04 Vitamin B12 Injection - IM 1,000 mcg DAILY ROBYN Administration Triamcinolone Acetonide 1 applic 09/25/17 12:30 09/27/17 10:04 Aristocort 0.1% Ointment - TP 1 applic BID ROBYN Administration 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 She has had several episodes of acute vertigo /headache ct head mri brain neg family h/o dvt/strokes. no personal h/o thrombosis but had miscarriages No sx of CAPLS No evidence of MAHA replete B12. B12 deficient Neurologically stable will f/u with rheum close monitoring of CBC to trend the platelets upon d/c d/w pt and in detail at bedside
[2017-09-27 18:22] VITALS: BP 117/60; PULSE 83; TEMP 97.8
[2017-09-29 06:11] LABS: HEMATOCRIT 39.4 % (34.0-46.6)
[2017-09-29 08:07] LABS: PTT-LA MIX 79.6 sec (0.0-48.9)
== END 2017-09-27 19:11 | disposition home or self-care (01) | DRG 149 ==
LOC: JER 07:52 → JERBED 11:55 → J4W 16:45
PROVIDERS: ADMIT Family Medicine; ATTEND Family Medicine
DX: R42 Dizziness and giddiness (principal); D68.61 Antiphospholipid syndrome; L93.0 Discoid lupus erythematosus; R51 Headache; D69.6 Thrombocytopenia, unspecified
CPT/HCPCS: 36415; 70450-TC; 70544-TC; 70551-TC; 76705-TC; 80053; 80061; 81003; 81015; 82550; 82607; 82747; 83010; 83036; 83615; 83721; 83880; 84439; 84443; 84484; 84702; 85014; 85025; 85384; 85610; 85613; 85651; 85730; 85732; 86038; 86140; 86162; 86225; 86880; 93005; 93010; 99285-25; J1644

== ENCOUNTER 2018-12-25 12:54 | Emergency (ER) | payer BC, OTHER ==
[2018-12-25 13:05] VITALS: TEMP 97.9; BMI 23.0
[2018-12-25] MEDS ORDERED: SODIUM CHLORIDE 1,000 ML IV STA (13:44)
[2018-12-25] MEDS ORDERED: ONDANSETRON 4 MG/2 ML VIAL IVPB ONE (13:44)
[2018-12-25] MEDS ORDERED: ONDANSETRON 4 MG/2 ML VIAL ONE (13:53)
[2018-12-25] MEDS ORDERED: ACETAMINOPHEN 1000 MG/100 ML VIAL (NON FORMULARY) IVPB ONE (13:59)
[2018-12-25 14:01] LABS: BASO % 1.4 % (0-2.0); EOS % 1.5 % (0-4.5); HEMATOCRIT 38.3 % (32.4-45.2); HEMOGLOBIN 13.6 GM/dL (10.7-15.3); LYMPH % 18.1 % (8-40); MCH 30.8 pg (25.7-33.7); MCHC 35.6 g/dl (32.0-36.0); MEAN CELL VOLUME 86.5 fl (80-96); MEAN PLT VOLUME 9.1 fl (7.5-11.1); MONO % 5.8 % (3.8-10.2); NEUT % 73.2 % (42.8-82.8); PLATELET COUNT 126 K/MM3 (134-434); RBC 4.43 M/mm3 (3.60-5.2); RDW 13.7 % (11.6-15.6); WHITE BLOOD COUNT 4.1 K/mm3 (4.0-10.0)
[2018-12-25] MEDS ORDERED: METOCLOPRAMIDE HCL INJECTION 10 MG/2 ML VIAL IVPB ONE (14:09)
[2018-12-25 14:27] LABS: ALBUMIN 3.9 g/dl (3.4-5.0); ALK PHOS 47 U/L (45-117); ANION GAP 7 MMOL/L (8-16); BILIRUBIN,TOTAL 0.3 mg/dL (0.2-1); BLOOD UREA NITROGEN 15 mg/dL (7-18); CALCIUM 8.6 mg/dL (8.5-10.1); CHLORIDE 105 mmol/L (98-107); CO2 27 mmol/L (21-32); CREATININE 0.5 mg/dL (0.55-1.3); GLUCOSE,RANDOM 90 mg/dL (74-106); POTASSIUM 3.5 mmol/L (3.5-5.1); SGOT/AST 12 U/L (15-37); SGPT/ALT 19 U/L (13-61); SODIUM 138 mmol/L (136-145); TOT PROT 7.2 g/dl (6.4-8.2)
--- NOTE | 2018-12-25 14:45 | PDOC ---
History of Present Illness - General Chief Complaint: Headache Stated Complaint: DIZZNESS/VOMITING/ ABD PAIN Time Seen by Provider: 12/25/18 13:27 History Source: Patient, Spouse Exam Limitations: No Limitations - History of Present Illness Initial Comments: 12/25/18 14:41 Pt is a 48yo F with PMH of SLE, Thrombocytopenia, Vertigo presenting to ED with complaints of vertigo, nausea and headache. Pt states the vertigo started yesterday but was worse today. Per pt was complaining of dizziness since around 9am. He told her to lay down around noon but every time pt opens her eyes or moves her head she feels dizzy. She had one episode of nbnb emesis after tried giving her meclizine. Per pt, she has these episodes a few times per year. She was admitted about 2 years ago for similar complaints with normal MRI/MRA. Headache is localized in the bilateral temples. She denies syncope, chest pain, abdominal pain, changes in vision, numbness/tingling, sob, neck pain, weakness. PMD: Kevan PMH: see hpi PSH: none Meds: hydroxychloroquine Allergies: PCN Past History - Past Medical History Allergies/Adverse Reactions: Allergies Allergy/AdvReac Type Severity Reaction Status Date / Time Penicillins Allergy Verified 12/25/18 13:01 Home Medications: Ambulatory Orders Hydroxychloroquine Sulfate [Plaquenil] 400 mg PO HS 12/25/18 Ondansetron [Zofran Odt -] 4 mg SL DAILY #7 od.tablet 12/25/18 Anemia: No Asthma: No Cancer: No Cardiac Disorders: No CVA: No COPD: No CHF: No Dementia: No Diabetes: No GI Disorders: No Disorders: No HTN: No Hypercholesterolemia: No Liver Disease: No Seizures: No Thyroid Disease: No - Surgical History Abdominal Surgery: No Appendectomy: Yes Cardiac Surgery: No Cholecystectomy: No Lung Surgery: No Neurologic Surgery: No Orthopedic Surgery: No - Immunization History Immunization Up to Date: Yes - Suicide/Smoking/Psychosocial Hx Smoking History: Never smoked Have you smoked in the past 12 months: No Hx Alcohol Use: No Drug/Substance Use Hx: No Substance Use Type: None Hx Substance Use Treatment: No Review of Systems - Review of Systems Constitutional: No: Chills, Fever HEENTM: No: Eye Pain, Ear Pain, Tinnitus, Hearing Loss Respiratory: No: Cough, Shortness of Breath Cardiac (ROS): No: Chest Pain, Irregular Heart Rate, Lightheadedness, Palpitations, Syncope ABD/GI: Yes: Nausea, Vomiting. No: Constipated, Diarrhea : No: Burning, Dysuria Musculoskeletal: No: Back Pain, Muscle Pain, Neck Pain Integumentary: No: Symptoms Reported Neurological: Yes: See HPI, Headache, Dizziness. No: Numbness, Tingling, Weakness *Physical Exam - Vital Signs Last Vital Signs Temp Pulse Resp BP Pulse Ox 97.9 F 79 17 126/77 100 12/25/18 13:02 12/25/18 13:02 12/25/18 13:02 12/25/18 13:02 12/25/18 13:02 - Physical Exam General Appearance: Yes: Nourished, Appropriately Dressed, Mild Distress HEENT: positive: EOMI, LEANDRO, TMs Normal, Other (Pt kept closing eyes during exam , could not assess nystagmus). negative: Photophobia Respiratory/Chest: positive: Lungs Clear, Normal Breath Sounds. negative: Crackles, Wheezing Cardiovascular: positive: Regular Rhythm, Regular Rate, S1, S2. negative: Edema , JVD, Murmur Vascular Pulses: Carotid (R): 2+, Carotid (L): 2+, Dorsalis-Pedis (R): 2+, Doralis-Pedis (L): 2+ Gastrointestinal/Abdominal: positive: Normal Bowel Sounds, Soft. negative: Distended, Guarding, Rebound, Tenderness Musculoskeletal: negative: CVA Tenderness Extremity: positive: Normal Capillary Refill, Pelvis Stable. 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 negative: Sensory Deficit Moderate Sedation - Procedure Monitoring Vital Signs: Procedure Monitoring Vital Signs Temperature 97.9 F 12/25/18 13:02 Pulse Rate 79 12/25/18 13:02 Respiratory Rate 17 12/25/18 13:02 Blood Pressure 126/77 12/25/18 13:02 O2 Sat by Pulse Oximetry (%) 100 12/25/18 13:02 ED Treatment Course - LABORATORY CBC & Chemistry Diagram: 12/25/18 13:52 12/25/18 13:52 - ADDITIONAL ORDERS Additional order review: Laboratory Results 12/25/18 12/25/18 13:52 13:52 Sodium 138 Potassium 3.5 Chloride 105 Carbon Dioxide 27 Anion Gap 7 L BUN 15 Creatinine 0.5 L Creat Clearance w eGFR 131.69 Random Glucose 90 Calcium 8.6 Total Bilirubin 0.3 AST 12 L ALT 19 Alkaline Phosphatase 47 Total Protein 7.2 Albumin 3.9 Beta HCG, Quant < 1.0 Serum , Qual Cancelled 12/25/18 13:52 RBC 4.43 MCV 86.5 MCHC 35.6 RDW 13.7 MPV 9.1 Neutrophils % 73.2 D Lymphocytes % 18.1 D Monocytes % 5.8 Eosinophils % 1.5 Basophils % 1.4 - Medications Given in the ED: ED Medications Discontinued Medications Generic Name Dose Route Start Last Admin Trade Name Freq PRN Reason Stop Dose Admin Ondansetron HCl 4 mg 12/25/18 13:44 12/25/18 13:59 Zofran Injection IVPB 12/25/18 13:45 4 mg ONCE ONE Administration Medical Decision Making - Medical Decision Making 12/25/18 14:45 Pt is a 48yo F with PMH of SLE, Thrombocytopenia, Vertigo presenting to ED with complaints of vertigo, nausea and headache. Pt states the vertigo started yesterday but was worse today. Per pt was complaining of dizziness since around 9am. He told her to lay down around noon but every time pt opens her eyes or moves her head she feels dizzy. She had one episode of nbnb emesis after tried giving her meclizine. Per pt, she has these episodes a few times per year. She was admitted about 2 years ago for similar complaints with normal MRI/MRA. Headache is localized in the bilateral temples. She denies syncope, chest pain, abdominal pain, changes in vision, numbness/tingling, sob, neck pain, weakness. Vitals: wnl PE: normal neurological exam, pt kept eyes closed/kept blinking, unable to properly assess nystagmus. Pt complaining of severe vertigo when moving head. ddx includes but not limited to vertigo (central v. peripheral), arrhythmia -cbc,cmp, preg -iv fluids, zofran, reglan, iv tylenol pt had mra/mri 2016, normal vasculature, no signs of infarct. Pt has been having these symptoms on and off, sudden onset, most likely peripheral will reassess. labs show pl 126 (higher than baseline). otherwise normal. pt feling better but still cannot move head. will give meclizine 12/25/18 17:04 pt feeling better, no more vertigo at this time. will dc with rx for zofran and neurology referral *DC/Admit/Observation/Transfer Diagnosis at time of Disposition: Vertigo - Discharge Dispostion Disposition: HOME Condition at time of disposition: Improved Decision to Admit order: No - Prescriptions Prescriptions: Ondansetron [Zofran Odt -] 4 mg SL DAILY #7 od.tablet - Referrals Referrals: Krzysztof Mathur MD [Primary Care Provider] - Yovany Valentine MD [Staff Physician] - - Patient Instructions Printed Discharge Instructions: DI for Vertigo Additional Instructions: You were seen in the emergency room today for vertigo. The blood tests show low platelets but everything else was normal. Please take the meclizine as directed. A prescription for Zofran was sent to your pharmacy. Take it if you feel nauseous only I recommend that you make an appointment with a neurologist. Come back to the emergency room if symptoms return, you lose consciousness, you are unable to move your arms and/or legs, you have numbness/tingling, you ave chest pain or if any new concerning symptom develops. Thank you - Post Discharge Activity
[2018-12-25] MEDS ORDERED: ACETAMINOPHEN INJECTION 100 ML IVPB ONE (15:12)
[2018-12-25] MEDS ORDERED: MECLIZINE HCL 25 MG TABLET (FP) PO ONE (15:16)
[2018-12-25] MEDS ORDERED: MECLIZINE HCL 25 MG TABLET (FP) ONE (15:35)
[2018-12-25] MEDS ORDERED: METOCLOPRAMIDE HCL INJECTION 10 MG/2 ML VIAL ONE (15:35)
[2018-12-25 17:09] VITALS: BP 97/68; PULSE 74
--- NOTE | 2018-12-25 17:12 | PDOC ---
Attending Attestation - Resident Resident Name: Elana Sung - ED Attending Attestation I have performed the following: I have examined & evaluated the patient, The case was reviewed & discussed with the resident, I agree w/resident's findings & plan, Exceptions are as noted - HPI HPI: 12/25/18 17:04 The patient is a 48 year old female, with a significant past medical history of lupus, thrombocytopenia, and vertigo, who presents to the emergency department with, 2 days of gradual onset temporal headache and dizziness. Patient describes her dizziness as room-spinning worsening when getting up and opening her eyes with associated nausea and vomiting. She notes similar episodes in the past, approximately 6 this year, and one admission 09/2017 for her symptoms. She notes attempting to lay down and took Meclizine, however, she vomited immediately after the intake prompting her arrival to the ED. She denies recent fevers or chills. She denies recent diarrhea or constipation. She denies recent dysuria, frequency, urgency or hematuria. She denies recent chest pain, palpitations, or shortness of breath. Denies focal weakness or numbness. Allergies: Penicillins Past surgical history: None reported. Social history: Nonsmoker. Denies EtOH use and recreational drug use. Primary Care Physician: Dr. Mathur - Physicial Exam PE: 12/25/18 17:06 GENERAL: Awake, alert, and fully oriented, in no acute distress HEAD: No signs of trauma EYES: PERRLA, EOMI, sclera anicteric, conjunctiva clear ENT: Auricles normal inspection, hearing grossly normal, nares patent, oropharynx clear without exudates. Moist mucosa NECK: Normal ROM, supple, no lymphadenopathy, JVD, or masses LUNGS: Breath sounds equal, clear to auscultation bilaterally. No wheezes, and no crackles HEART: Regular rate and rhythm, normal S1 and S2, no murmurs, rubs or gallops ABDOMEN: Soft, nontender, normoactive bowel sounds. No guarding, no rebound. No masses EXTREMITIES: Normal range of motion, no edema. No clubbing or cyanosis. No cords, erythema, or tenderness NEUROLOGICAL: Normal speech, cranial nerves intact, negative pronator drift, 5/ 5 strength in all 4 extremities, normal sensation to light touch in all 4 extremities, normal cerebellar exam, normal gait, normal tone SKIN: Warm, Dry, normal turgor, no rashes or lesions noted. - Medical Decision Making 12/25/18 17:07 48yo F hx SLE, thrombocytopenia, vertigo presents to the ED with vertigo, N/V similar to previous episodes. Vitals wnl. Exam initially with postional vertigo in almost all directions, after reglan, fluids, meclizine, pt reports sxs have resolved. She is neuro intact. Able to gait to the bathroom w/o sxs. Requests DC home I discussed the physical exam findings, ancillary test results and final diagnoses with the patient. I answered all of the patient's questions. The patient was satisfied with the care received and felt comfortable with the discharge plan and treatment plan. The patient will call their primary care physician within 24 hours to arrange follow-up and will return to the Emergency Department with any new, persistent or worsening symptoms. Heart Score/ECG Review #1 12/25/18 17:15 Twelve-lead EKG was performed and reviewed by me. Normal sinus rhythm, rate 75. Normal axis. No ST elevations. Diffuse TW flattening. No sig change compared to EKG from 2017.
--- NOTE | 2018-12-25 22:42 | EKG ---
Test Reason : Blood Pressure : / mmHG Vent. Rate : 075 BPM Atrial Rate : 075 BPM P-R Int : 176 ms QRS Dur : 084 ms QT Int : 410 ms P-R-T Axes : 047 047 030 degrees QTc Int : 457 ms NORMAL SINUS RHYTHM NONSPECIFIC T WAVE ABNORMALITY ABNORMAL ECG WHEN COMPARED WITH ECG OF 25-SEP-2017 09:18, NO SIGNIFICANT CHANGE WAS FOUND Confirmed by ASHISH WEST MD ([id number]) on 12/25/2018 10:41:57 PM Referred By: Confirmed By:ASHISH WEST MD
== END 2018-12-25 17:09 | disposition home or self-care (01) ==
LOC: JER 12:54
PROC: 3E033NZ Introduction of Analgesics, Hypnotics, Sedatives into Peripheral Vein, Percutaneous Approach (ICD-10-PCS; principal; 2018-12-25)
PROC: 3E033GC Introduction of Other Therapeutic Substance into Peripheral Vein, Percutaneous Approach (ICD-10-PCS; 2018-12-25)
PROC: 3E033GC Introduction of Other Therapeutic Substance into Peripheral Vein, Percutaneous Approach (ICD-10-PCS; 2018-12-25)
DX: R42 Dizziness and giddiness (principal); D69.6 Thrombocytopenia, unspecified; M32.9 Systemic lupus erythematosus, unspecified
CPT/HCPCS: 36415; 80053; 84702; 85025; 93005; 93010; 99282-25; J0131; J7030

== ENCOUNTER 2021-01-23 15:18 | Inpatient (IN) | payer BC ==
[2021-01-23] MEDS ORDERED: PANTOPRAZOLE SODIUM 40 MG VIAL IVPUSH ONE (16:55)
[2021-01-23] MEDS ORDERED: DEXAMETHASONE SOD PHOSPHATE 10 MG/1 ML VIAL IVPUSH ONE (16:55)
[2021-01-23] MEDS ORDERED: PANTOPRAZOLE SODIUM 40 MG/100 ML BAG IVPB ONE (17:33)
[2021-01-23] MEDS ORDERED: DEXAMETHASONE SOD PHOSPHATE 10 MG/1 ML VIAL ONE (17:33)
[2021-01-23 18:10] LABS: BASO % 1.3 % (0-2.0); EOS % 2.2 % (0-4.5); HEMATOCRIT 34.4 % (32.4-45.2); HEMOGLOBIN 11.7 GM/dL (10.7-15.3); LYMPH % 27.4 % (8-40); MCH 29.3 pg (25.7-33.7); MCHC 34.1 g/dl (32.0-36.0); MEAN CELL VOLUME 85.8 fl (80-96); MEAN PLT VOLUME 10.8 fl (7.5-11.1); MONO % 8.5 % (3.8-10.2); NEUT % 60.6 % (42.8-82.8); RBC 4.01 M/mm3 (3.60-5.2); WHITE BLOOD COUNT 5.1 K/mm3 (4.0-10.0)
[2021-01-23 18:13] LABS: PLATELET COUNT 22 K/MM3 (134-434)
[2021-01-23 18:18] LABS: INR 0.97 (0.83-1.09)
[2021-01-23 18:20] LABS: ACTIVATED PTT 57.3 SECONDS (25.2-36.5)
[2021-01-23 18:38] LABS: ALBUMIN 3.6 g/dl (3.4-5.0); BLOOD UREA NITROGEN 20.6 mg/dL (7-18); CALCIUM 8.7 mg/dL (8.5-10.1)
[2021-01-23 18:42] LABS: CREATININE 0.6 mg/dL (0.55-1.3)
[2021-01-23 18:43] LABS: BILIRUBIN,TOTAL 0.2 mg/dL (0.2-1); TOT PROT 6.6 g/dl (6.4-8.2)
[2021-01-23] MEDS: ACETAMINOPHEN 325 MG TABLET (FP) PO PRN (21:30)
[2021-01-24 03:26] VITALS: BMI 24.5
[2021-01-24] MEDS: ACETAMINOPHEN 325 MG TABLET (FP) PO PRN ×2 (09:27→16:39)
[2021-01-24] MEDS ORDERED: FOLIC ACID INJECTION - 1 MG, THIAMINE HCL 100 MG, MULTIVIT INJECTION ADULT 10 ML in SOD... IVPB ONE (09:54)
[2021-01-24] MEDS: DEXAMETHASONE 4 MG TABLET (FP) PO SCH (11:54)
[2021-01-24] MEDS: PANTOPRAZOLE 40 MG TABLET PO SCH (11:55)
[2021-01-24 12:35] LABS: BASO % 0.3 % (0-2.0); EOS % 0.2 % (0-4.5); HEMATOCRIT 35.5 % (32.4-45.2); MCHC 33.8 g/dl (32.0-36.0); MEAN CELL VOLUME 85.9 fl (80-96); MEAN PLT VOLUME 10.5 fl (7.5-11.1); NEUT % 75.5 % (42.8-82.8); RBC 4.14 M/mm3 (3.60-5.2); RDW 13.2 % (11.6-15.6); WHITE BLOOD COUNT 8.5 K/mm3 (4.0-10.0)
[2021-01-24 12:51] LABS: CALCIUM 8.5 mg/dL (8.5-10.1)
[2021-01-24 12:52] LABS: ALBUMIN 3.5 g/dl (3.4-5.0); BLOOD UREA NITROGEN 15.6 mg/dL (7-18)
[2021-01-24 12:53] LABS: PLATELET COUNT 17 K/MM3 (134-434)
[2021-01-24 12:55] LABS: CREATININE 0.6 mg/dL (0.55-1.3)
[2021-01-24 12:56] LABS: BILIRUBIN,TOTAL 0.2 mg/dL (0.2-1); TOT PROT 6.4 g/dl (6.4-8.2)
[2021-01-24] MEDS ORDERED: SENNOSIDES 8.6MG TABLET (FP) PO PRN (15:59)
[2021-01-24] MEDS ORDERED: METOCLOPRAMIDE HCL INJECTION 10 MG/2 ML VIAL IVPB ONE (22:06)
[2021-01-25 09:17] LABS: HEMATOCRIT 34.6 % (32.4-45.2); HEMOGLOBIN 11.8 GM/dL (10.7-15.3); MCH 29.2 pg (25.7-33.7); MCHC 34.3 g/dl (32.0-36.0); MEAN CELL VOLUME 85.3 fl (80-96); RBC 4.05 M/mm3 (3.60-5.2); WHITE BLOOD COUNT 10.5 K/mm3 (4.0-10.0)
[2021-01-25 09:24] LABS: PLATELET COUNT 26 K/MM3 (134-434)
[2021-01-25 09:48] LABS: CALCIUM 8.4 mg/dL (8.5-10.1)
[2021-01-25 09:49] LABS: BLOOD UREA NITROGEN 15.4 mg/dL (7-18)
[2021-01-25 09:52] LABS: CREATININE 0.6 mg/dL (0.55-1.3)
[2021-01-25 09:53] LABS: IRON SERUM 36 ug/dL (50-175)
[2021-01-25 09:54] LABS: TOTAL IRON BINDING CAPACITY 368 ug/dL (250-450)
[2021-01-25] MEDS ORDERED: POTASSIUM CHLORIDE TABS 10 MEQ TABLET.ER (FP) PO ONE ×2 (10:15→11:15)
[2021-01-25] MEDS: DEXAMETHASONE 4 MG TABLET (FP) PO SCH ×2 (10:31→11:07)
[2021-01-25] MEDS ORDERED: FERRIC CARBOXYMALTOSE 750 MG in SODIUM CHLORIDE 250 ML IVPB ONE (11:00)
[2021-01-25] MEDS: PANTOPRAZOLE 40 MG TABLET PO SCH (11:07)
[2021-01-25] MEDS ORDERED: POTASSIUM CHLORIDE TABS 20 MEQ TABLET.ER (FP) PO ONE (11:15)
[2021-01-25] MEDS ORDERED: SENNOSIDES 8.6MG TABLET (FP) PO ONE (13:15)
[2021-01-25] MEDS ORDERED: POLYETHYLENE GLYCOL 3350 119 GM BTL PO ONE (20:36)
[2021-01-26 09:28] LABS: BASO % 0.3 % (0-2.0); EOS % 0.1 % (0-4.5); HEMATOCRIT 35.7 % (32.4-45.2); HEMOGLOBIN 12.2 GM/dL (10.7-15.3); LYMPH % 19.4 % (8-40); MCH 28.9 pg (25.7-33.7); MCHC 34.2 g/dl (32.0-36.0); MEAN CELL VOLUME 84.7 fl (80-96); MEAN PLT VOLUME 10.2 fl (7.5-11.1); MONO % 6.9 % (3.8-10.2); NEUT % 73.3 % (42.8-82.8); RBC 4.22 M/mm3 (3.60-5.2); RDW 12.8 % (11.6-15.6); WHITE BLOOD COUNT 12.1 K/mm3 (4.0-10.0)
[2021-01-26 09:39] LABS: PLATELET COUNT 30 K/MM3 (134-434)
[2021-01-26 09:59] LABS: CALCIUM 8.8 mg/dL (8.5-10.1)
[2021-01-26 10:00] LABS: BLOOD UREA NITROGEN 17.3 mg/dL (7-18); MAGNESIUM 2.1 mg/dL (1.8-2.4)
[2021-01-26 10:03] LABS: CREATININE 0.6 mg/dL (0.55-1.3)
[2021-01-26] MEDS ORDERED: PT OWN MED DRAWER 7, Y5N ONE ×2 (10:23→12:14)
[2021-01-26] MEDS ORDERED: DEXAMETHASONE 4 MG TABLET (FP) PO SCH (10:30)
[2021-01-26] MEDS: PANTOPRAZOLE 40 MG TABLET PO SCH (10:45)
[2021-01-26] MEDS: DEXAMETHASONE 4 MG TABLET (FP) PO SCH (12:20)
[2021-01-26 15:45] VITALS: BP 107/65; PULSE 76; TEMP 98.2
[2021-01-28 10:09] LABS: DRVVT - 81.4 sec (0.0-47.0); DRVVT CONFIRM SECONDS 2.4 ratio (0.8-1.2); HEXAGONAL PHASE PHOSPHOLIPID 35 sec (0-11); dRVVT MIX 72.5 sec (0.0-40.4)
[2021-02-09 00:10] LABS: VITAMIN E (B-GAMMA) 1.3 mg/L (0.5-5.5)
== END 2021-01-26 16:25 | disposition home or self-care (01) | DRG 813 ==
LOC: JERFT 15:18 → JERBED 16:34 → J5S 20:27
PROVIDERS: ADMIT Family Medicine; ATTEND Family Medicine
DX: D69.3 Immune thrombocytopenic purpura (principal); D68.61 Antiphospholipid syndrome; M32.9 Systemic lupus erythematosus, unspecified; R51.9 Headache, unspecified; R21 Rash and other nonspecific skin eruption; D50.9 Iron deficiency anemia, unspecified
CPT/HCPCS: 36415; 70450-TC; 71046-TC-FY; 80048; 80053; 82180; 82306; 82607; 83540; 83550; 83615; 83735; 84207; 84252; 84446; 84590; 84597; 85025; 85027; 85384; 85610; 85613; 85730; 85732; 93005; 93010; 99285-25; C9803; J1100; J1439; U0003; U0005

== ENCOUNTER 2021-02-26 06:54 | Day surgery (SDC) | payer BC, OTHER ==
[2021-02-26 09:44] LABS: BASO % 1.1 % (0-2.0); EOS % 2.2 % (0-4.5); HEMATOCRIT 39.3 % (32.4-45.2); HEMOGLOBIN 13.2 GM/dL (10.7-15.3); LYMPH % 27.3 % (8-40); MCH 29.2 pg (25.7-33.7); MCHC 33.7 g/dl (32.0-36.0); MEAN CELL VOLUME 86.8 fl (80-96); MEAN PLT VOLUME 10.5 fl (7.5-11.1); MONO % 8.7 % (3.8-10.2); NEUT % 60.7 % (42.8-82.8); RBC 4.53 M/mm3 (3.60-5.2); RDW 15.2 % (11.6-15.6); WHITE BLOOD COUNT 5.5 K/mm3 (4.0-10.0)
[2021-02-26 09:51] LABS: PLATELET COUNT 29 K/MM3 (134-434)
[2021-02-26] MEDS ORDERED: ACETAMINOPHEN 325 MG TABLET (FP) PO ONE (10:00)
[2021-02-26] MEDS ORDERED: POTASSIUM CHLORIDE TABS 20 MEQ TABLET.ER (FP) PO ONE (10:00)
[2021-02-26] MEDS ORDERED: DEXAMETHASONE SODIUM PHOSPHATE 10 MG, DIPHENHYDRAMINE 25 MG in SODIUM CHLORIDE 100 ML IVPB ONE (10:00)
[2021-02-26] MEDS ORDERED: FUROSEMIDE 20 MG TABLET (FP) PO ONE (10:00)
[2021-02-26 10:15] LABS: ALBUMIN 4.1 g/dl (3.4-5.0); BLOOD UREA NITROGEN 14.8 mg/dL (7-18); CALCIUM 8.5 mg/dL (8.5-10.1)
[2021-02-26 10:16] LABS: MAGNESIUM 2.1 mg/dL (1.8-2.4)
[2021-02-26 10:18] LABS: BILIRUBIN,DIRECT 0.1 mg/dL (0.0-0.2); CREATININE 0.5 mg/dL (0.55-1.3); URIC ACID 3.7 mg/dL (2.6-7.2)
[2021-02-26 10:20] LABS: BILIRUBIN,TOTAL 0.4 mg/dL (0.2-1); TOT PROT 7.2 g/dl (6.4-8.2)
[2021-02-26] MEDS ORDERED: IMMUN GLOB G(IGG)/PRO/IGA 0-50 600 ML IVPB ONE (10:30)
[2021-02-26 17:06] VITALS: TEMP 98.3
[2021-02-26 17:13] VITALS: BP 109/50; PULSE 68
== END 2021-02-26 14:35 | disposition home or self-care (01) ==
LOC: JONCNONCHE 06:54
PROVIDERS: ATTEND Internal Medicine Hematology & Oncology
PROC: 3E033GC Introduction of Other Therapeutic Substance into Peripheral Vein, Percutaneous Approach (ICD-10-PCS; principal; 2021-02-26)
PROC: 3E033GC Introduction of Other Therapeutic Substance into Peripheral Vein, Percutaneous Approach (ICD-10-PCS; 2021-02-26)
DX: D69.3 Immune thrombocytopenic purpura (principal); M32.9 Systemic lupus erythematosus, unspecified; D68.61 Antiphospholipid syndrome
CPT/HCPCS: 36415; 80048; 80076; 83615; 83735; 84550; 85025; 96365; 96366; 96367; J1459

== ENCOUNTER 2021-02-27 07:42 | Day surgery (SDC) | payer BC, OTHER ==
[2021-02-27] MEDS ORDERED: IMMUN GLOB G(IGG)/PRO/IGA 0-50 600 ML IVPB ONE ×2 (09:00→10:30)
[2021-02-27] MEDS ORDERED: ACETAMINOPHEN 325 MG TABLET (FP) PO ONE ×2 (09:00→10:00)
[2021-02-27] MEDS ORDERED: FUROSEMIDE 20 MG TABLET (FP) PO ONE ×2 (09:00→10:00)
[2021-02-27] MEDS ORDERED: DEXAMETHASONE SODIUM PHOSPHATE 10 MG, DIPHENHYDRAMINE 25 MG in SODIUM CHLORIDE 100 ML IVPB ONE ×2 (09:00→10:00)
[2021-02-27] MEDS ORDERED: POTASSIUM CHLORIDE TABS 20 MEQ TABLET.ER (FP) PO ONE ×2 (09:00→10:00)
[2021-02-27 14:54] VITALS: TEMP 97.8
[2021-02-27 14:56] VITALS: BP 99/69; PULSE 80
== END 2021-02-27 13:00 | disposition home or self-care (01) ==
LOC: JONCNONCHE 07:42
PROVIDERS: ATTEND Internal Medicine Hematology & Oncology
PROC: 3E033GC Introduction of Other Therapeutic Substance into Peripheral Vein, Percutaneous Approach (ICD-10-PCS; principal; 2021-02-27)
DX: D69.3 Immune thrombocytopenic purpura (principal); M32.9 Systemic lupus erythematosus, unspecified; D68.61 Antiphospholipid syndrome
CPT/HCPCS: 96365; 96366; J1459

== ENCOUNTER 2021-03-13 13:31 | Inpatient (IN) | payer BC ==
[2021-03-13] MEDS ORDERED: DEXAMETHASONE SOD PHOSPHATE 20 MG/5 ML VIAL IVPB ONE ×2 (13:42→15:53)
[2021-03-13 13:43] VITALS: BMI 25.4
[2021-03-13] MEDS ORDERED: DEXAMETHASONE SOD PHOSPHATE 10 MG/1 ML VIAL ONE ×2 (13:50→16:04)
[2021-03-13 14:45] LABS: EOS % 1.8 % (0-4.5); HEMATOCRIT 36.4 % (32.4-45.2); HEMOGLOBIN 12.4 GM/dL (10.7-15.3); MCH 29.6 pg (25.7-33.7); MCHC 34.2 g/dl (32.0-36.0); MEAN CELL VOLUME 86.5 fl (80-96); MEAN PLT VOLUME 10.4 fl (7.5-11.1); MONO % 7.2 % (3.8-10.2); RDW 14.9 % (11.6-15.6); WHITE BLOOD COUNT 6.4 K/mm3 (4.0-10.0)
[2021-03-13 14:51] LABS: INR 1.02 (0.83-1.09); PROTHROMBIN TIME (PATIENT) 12.3 SEC (9.7-13.0)
[2021-03-13 14:53] LABS: PLATELET COUNT 11 K/MM3 (134-434)
[2021-03-13 14:54] LABS: ACTIVATED PTT 56.3 SECONDS (25.2-36.5)
[2021-03-13 14:57] LABS: ALBUMIN 3.9 g/dl (3.4-5.0); CALCIUM 8.9 mg/dL (8.5-10.1)
[2021-03-13 14:59] LABS: CREATININE 0.5 mg/dL (0.55-1.3)
[2021-03-13 15:02] LABS: BILIRUBIN,TOTAL 0.2 mg/dL (0.2-1); TOT PROT 8.3 g/dl (6.4-8.2)
[2021-03-13] MEDS ORDERED: PANTOPRAZOLE SODIUM 40 MG VIAL IVPUSH ONE (15:54)
[2021-03-13] MEDS ORDERED: PANTOPRAZOLE SODIUM 40 MG VIAL ONE (16:00)
[2021-03-13] MEDS: ACETAMINOPHEN 325 MG TABLET (FP) PO PRN (21:50)
[2021-03-13] MEDS: SENNOSIDES 8.6MG TABLET (FP) PO PRN (22:32)
[2021-03-13 23:34] LABS: BASO % 0.5 % (0-2.0); HEMATOCRIT 34.9 % (32.4-45.2); HEMOGLOBIN 11.8 GM/dL (10.7-15.3); MCH 29.1 pg (25.7-33.7); MCHC 33.7 g/dl (32.0-36.0); MEAN CELL VOLUME 86.4 fl (80-96); MEAN PLT VOLUME 10.8 fl (7.5-11.1); MONO % 1.5 % (3.8-10.2); RBC 4.03 M/mm3 (3.60-5.2); RDW 14.3 % (11.6-15.6); WHITE BLOOD COUNT 3.9 K/mm3 (4.0-10.0)
[2021-03-13 23:36] LABS: PLATELET COUNT 25 K/MM3 (134-434)
[2021-03-14 09:18] LABS: BASO % 0.2 % (0-2.0); HEMATOCRIT 35.3 % (32.4-45.2); HEMOGLOBIN 12.1 GM/dL (10.7-15.3); LYMPH % 13.6 % (8-40); MCH 29.8 pg (25.7-33.7); MCHC 34.3 g/dl (32.0-36.0); MEAN CELL VOLUME 86.7 fl (80-96); MEAN PLT VOLUME 10.4 fl (7.5-11.1); NEUT % 80.2 % (42.8-82.8); RBC 4.07 M/mm3 (3.60-5.2); RDW 14.6 % (11.6-15.6); WHITE BLOOD COUNT 7.5 K/mm3 (4.0-10.0)
[2021-03-14 09:26] LABS: PLATELET COUNT 15 K/MM3 (134-434)
[2021-03-14 09:54] LABS: ALBUMIN 3.7 g/dl (3.4-5.0); BLOOD UREA NITROGEN 10.3 mg/dL (7-18); CALCIUM 8.9 mg/dL (8.5-10.1)
[2021-03-14 09:58] LABS: BILIRUBIN,TOTAL 0.5 mg/dL (0.2-1); CREATININE 0.4 mg/dL (0.55-1.3); TOT PROT 7.8 g/dl (6.4-8.2)
[2021-03-14] MEDS: DEXAMETHASONE 4 MG TABLET (FP) PO SCH (12:08)
[2021-03-14] MEDS: PANTOPRAZOLE SODIUM 40 MG VIAL IVPB SCH (12:08)
[2021-03-14] MEDS: SENNOSIDES 8.6MG TABLET (FP) PO PRN (17:37)
[2021-03-14] MEDS: ACETAMINOPHEN 325 MG TABLET (FP) PO PRN (20:16)
[2021-03-15 07:50] LABS: BASO % 1.1 % (0-2.0); EOS % 1.1 % (0-4.5); LYMPH % 32.4 % (8-40); MCH 29.7 pg (25.7-33.7); MCHC 34.4 g/dl (32.0-36.0); MEAN CELL VOLUME 86.3 fl (80-96); MEAN PLT VOLUME 10.6 fl (7.5-11.1); MONO % 7.7 % (3.8-10.2); NEUT % 57.7 % (42.8-82.8); RBC 4.05 M/mm3 (3.60-5.2); RDW 14.9 % (11.6-15.6); WHITE BLOOD COUNT 6.4 K/mm3 (4.0-10.0)
[2021-03-15 08:14] LABS: PLATELET COUNT 15 K/MM3 (134-434)
[2021-03-15] MEDS ORDERED: PT OWN MED DRAWER 7, Y5N ONE (09:36)
[2021-03-15] MEDS: PANTOPRAZOLE SODIUM 40 MG VIAL IVPB SCH (09:47)
[2021-03-15] MEDS: DEXAMETHASONE 4 MG TABLET (FP) PO SCH (09:47)
[2021-03-15] MEDS: ACETAMINOPHEN 325 MG TABLET (FP) PO PRN ×2 (10:05→17:35)
[2021-03-15] MEDS: SENNOSIDES 8.6MG TABLET (FP) PO PRN (20:17)
[2021-03-16 08:32] LABS: BASO % 1.3 % (0-2.0); EOS % 1.5 % (0-4.5); HEMATOCRIT 35.8 % (32.4-45.2); HEMOGLOBIN 12.2 GM/dL (10.7-15.3); LYMPH % 24.9 % (8-40); MCH 29.6 pg (25.7-33.7); MCHC 34.2 g/dl (32.0-36.0); MEAN CELL VOLUME 86.7 fl (80-96); MEAN PLT VOLUME 10.8 fl (7.5-11.1); MONO % 8.5 % (3.8-10.2); NEUT % 63.8 % (42.8-82.8); RBC 4.12 M/mm3 (3.60-5.2); RDW 14.9 % (11.6-15.6); WHITE BLOOD COUNT 5.1 K/mm3 (4.0-10.0)
[2021-03-16 08:40] LABS: PLATELET COUNT 13 K/MM3 (134-434)
[2021-03-16] MEDS: PANTOPRAZOLE SODIUM 40 MG VIAL IVPB SCH (10:50)
[2021-03-16 13:06] LABS: HEP B CORE AB, TOT Negative (Negative)
[2021-03-16] MEDS ORDERED: SODIUM CHLORIDE 250 ML IV ONE (14:00)
[2021-03-16 14:07] LABS: FREE KAPPA,SERUM 15.3 mg/L (3.3-19.4)
[2021-03-16] MEDS ORDERED: PT OWN MED DRAWER 7, Y5N ONE (14:21)
[2021-03-16] MEDS ORDERED: ACETAMINOPHEN 325 MG TABLET (FP) PO ONE (14:30)
[2021-03-16] MEDS ORDERED: SODIUM CHLORIDE IVPB ONE (15:00)
[2021-03-16] MEDS ORDERED: RITUXIMAB PVVR IVPB ONE (15:00)
[2021-03-16] MEDS: DEXAMETHASONE 4 MG TABLET (FP) PO SCH (15:11)
[2021-03-16] MEDS: SODIUM CHLORIDE 1,000 ML IV SCH (19:46)
[2021-03-16] MEDS: SENNOSIDES 8.6MG TABLET (FP) PO PRN (22:12)
[2021-03-17 07:35] LABS: BASO % 1.2 % (0-2.0); HEMATOCRIT 35.3 % (32.4-45.2); HEMOGLOBIN 12.1 GM/dL (10.7-15.3); MCH 29.6 pg (25.7-33.7); MCHC 34.1 g/dl (32.0-36.0); MEAN CELL VOLUME 86.8 fl (80-96); MEAN PLT VOLUME 10.4 fl (7.5-11.1); NEUT % 79.8 % (42.8-82.8); RBC 4.07 M/mm3 (3.60-5.2); WHITE BLOOD COUNT 6.1 K/mm3 (4.0-10.0)
[2021-03-17 07:42] LABS: PLATELET COUNT 14 K/MM3 (134-434)
[2021-03-17 07:59] LABS: CALCIUM 8.8 mg/dL (8.5-10.1)
[2021-03-17 08:00] LABS: ALBUMIN 3.4 g/dl (3.4-5.0); BLOOD UREA NITROGEN 13.1 mg/dL (7-18)
[2021-03-17 08:03] LABS: CREATININE 0.4 mg/dL (0.55-1.3)
[2021-03-17 08:04] LABS: BILIRUBIN,TOTAL 0.3 mg/dL (0.2-1); TOT PROT 6.9 g/dl (6.4-8.2)
[2021-03-17] MEDS: PANTOPRAZOLE SODIUM 40 MG VIAL IVPB SCH (09:55)
[2021-03-17] MEDS: ACETAMINOPHEN 325 MG TABLET (FP) PO PRN (16:18)
[2021-03-17] MEDS: SENNOSIDES 8.6MG TABLET (FP) PO PRN (19:37)
[2021-03-17] MEDS: SODIUM CHLORIDE 1,000 ML IV SCH (22:42)
[2021-03-18] MEDS: ACETAMINOPHEN 325 MG TABLET (FP) PO PRN ×2 (09:45→22:48)
[2021-03-18] MEDS: PANTOPRAZOLE SODIUM 40 MG VIAL IVPB SCH (09:46)
[2021-03-18 11:15] LABS: BASO % 1.4 % (0-2.0); EOS % 1.4 % (0-4.5); HEMATOCRIT 33.7 % (32.4-45.2); HEMOGLOBIN 11.7 GM/dL (10.7-15.3); LYMPH % 19.4 % (8-40); MCHC 34.8 g/dl (32.0-36.0); MEAN CELL VOLUME 86.4 fl (80-96); MEAN PLT VOLUME 10.3 fl (7.5-11.1); MONO % 9.1 % (3.8-10.2); NEUT % 68.7 % (42.8-82.8); RBC 3.91 M/mm3 (3.60-5.2); RDW 14.8 % (11.6-15.6); WHITE BLOOD COUNT 5.2 K/mm3 (4.0-10.0)
[2021-03-18 11:19] LABS: PLATELET COUNT 12 K/MM3 (134-434)
[2021-03-18 11:38] LABS: ALBUMIN 3.3 g/dl (3.4-5.0); BLOOD UREA NITROGEN 9.5 mg/dL (7-18); CALCIUM 8.6 mg/dL (8.5-10.1)
[2021-03-18 11:42] LABS: CREATININE 0.4 mg/dL (0.55-1.3)
[2021-03-18 11:43] LABS: BILIRUBIN,TOTAL 0.5 mg/dL (0.2-1)
[2021-03-18] MEDS ORDERED: POTASSIUM CHLORIDE TABS 20 MEQ TABLET.ER (FP) PO ONE (12:26)
[2021-03-18] MEDS: HYDROXYCHLOROQUINE SO4 200 MG TABLET (FP) PO SCH (18:10)
[2021-03-18] MEDS: SENNOSIDES 8.6MG TABLET (FP) PO PRN (19:40)
[2021-03-18] MEDS: SODIUM CHLORIDE 1,000 ML IV SCH (22:05)
[2021-03-19] MEDS ORDERED: diphenhydrAMINE HCL 25 MG CAPSULE (FP) PO ONE (05:28)
[2021-03-19] MEDS: SODIUM CHLORIDE 1,000 ML IV SCH ×2 (06:33→20:37)
[2021-03-19 07:38] LABS: HEMATOCRIT 34.4 % (32.4-45.2); HEMOGLOBIN 11.9 GM/dL (10.7-15.3); MCHC 34.7 g/dl (32.0-36.0); MEAN CELL VOLUME 86.5 fl (80-96); MEAN PLT VOLUME 10.5 fl (7.5-11.1); RBC 3.98 M/mm3 (3.60-5.2); RDW 14.6 % (11.6-15.6); WHITE BLOOD COUNT 5.3 K/mm3 (4.0-10.0)
[2021-03-19 07:48] LABS: CHLORIDE 108 mmol/L (98-107); SODIUM 139 mmol/L (136-145)
[2021-03-19 07:58] LABS: PLATELET COUNT 11 K/MM3 (134-434)
[2021-03-19 08:15] LABS: ANION GAP 6 MMOL/L (8-16); CALCIUM 8.3 mg/dL (8.5-10.1); CO2 25 mmol/L (21-32); GLUCOSE,RANDOM 81 mg/dL (74-106)
[2021-03-19 08:16] LABS: BLOOD UREA NITROGEN 11.8 mg/dL (7-18); MAGNESIUM 1.9 mg/dL (1.8-2.4)
[2021-03-19 08:18] LABS: CREATININE 0.5 mg/dL (0.55-1.3)
[2021-03-19] MEDS: PANTOPRAZOLE SODIUM 40 MG VIAL IVPB SCH (09:38)
[2021-03-19] MEDS ORDERED: DEXAMETHASONE SODIUM PHOSPHATE 10 MG, DIPHENHYDRAMINE 50 MG in SODIUM CHLORIDE 100 ML IVPB ONE (10:00)
[2021-03-19] MEDS ORDERED: ACETAMINOPHEN 325 MG TABLET (FP) PO ONE (10:00)
[2021-03-19] MEDS ORDERED: IMMUN GLOB G(IGG)/PRO/IGA 0-50 600 ML IVPB ONE (11:00)
[2021-03-19 14:39] LABS: ERYTHROCYTE SEDIMENTATION RATE 17 mm/hr (0-30)
[2021-03-19] MEDS: HYDROXYCHLOROQUINE SO4 200 MG TABLET (FP) PO SCH (18:02)
[2021-03-19] MEDS: SENNOSIDES 8.6MG TABLET (FP) PO PRN (18:02)
[2021-03-19] MEDS: ACETAMINOPHEN 325 MG TABLET (FP) PO PRN (20:37)
[2021-03-20] MEDS: SODIUM CHLORIDE 1,000 ML IV SCH (05:31)
[2021-03-20 07:06] VITALS: BP 117/70; PULSE 79; TEMP 98.4
[2021-03-20 07:22] LABS: BASO % 0.8 % (0-2.0); EOS % 0.3 % (0-4.5); HEMATOCRIT 32.3 % (32.4-45.2); HEMOGLOBIN 11.3 GM/dL (10.7-15.3); LYMPH % 12.7 % (8-40); MCH 29.9 pg (25.7-33.7); MEAN CELL VOLUME 85.3 fl (80-96); MEAN PLT VOLUME 10.8 fl (7.5-11.1); MONO % 8.9 % (3.8-10.2); NEUT % 77.3 % (42.8-82.8); PLATELET COUNT 53 K/MM3 (134-434); RBC 3.79 M/mm3 (3.60-5.2); RDW 14.9 % (11.6-15.6); WHITE BLOOD COUNT 8.7 K/mm3 (4.0-10.0)
[2021-03-20 07:23] LABS: PROTHROMBIN TIME (PATIENT) 12.1 SEC (9.7-13.0)
[2021-03-20 07:26] LABS: ACTIVATED PTT 51.4 SECONDS (25.2-36.5)
[2021-03-20 07:46] LABS: CALCIUM 8.2 mg/dL (8.5-10.1)
[2021-03-20 07:47] LABS: ALBUMIN 3.1 g/dl (3.4-5.0); BLOOD UREA NITROGEN 15.1 mg/dL (7-18)
[2021-03-20 07:50] LABS: CREATININE 0.5 mg/dL (0.55-1.3)
[2021-03-20 07:51] LABS: BILIRUBIN,TOTAL 0.3 mg/dL (0.2-1)
[2021-03-20 07:52] LABS: TOT PROT 8.3 g/dl (6.4-8.2)
[2021-03-20] MEDS: PANTOPRAZOLE SODIUM 40 MG VIAL IVPB SCH (09:09)
== END 2021-03-20 12:07 | disposition home or self-care (01) | DRG 813 ==
LOC: JER 13:31 → JERBED 15:50 → J6S 20:10 → J7W 03-15 13:50
PROVIDERS: ADMIT Family Medicine; ATTEND Family Medicine
PROC: 30233R1 Transfusion of Nonautologous Platelets into Peripheral Vein, Percutaneous Approach (ICD-10-PCS; principal; 2021-03-13)
DX: D69.3 Immune thrombocytopenic purpura (principal); D68.61 Antiphospholipid syndrome; M32.9 Systemic lupus erythematosus, unspecified; R51.9 Headache, unspecified; G89.29 Other chronic pain; R10.9 Unspecified abdominal pain; R42 Dizziness and giddiness; L29.9 Pruritus, unspecified
CPT/HCPCS: 20225; 36415; 36430; 70450-TC; 71045-TC-FY; 71260-TC; 74177-TC; 80048; 80053; 82784; 82962; 83010; 83615; 83735; 83883; 84155; 84165; 85025; 85027; 85384; 85610; 85651; 85730; 86140; 86160; 86162; 86704; 86706; 86707; 86708; 86709; 86850; 86900; 86901; 87340; 87899; 88300-TC; 88305-TC; 88311-TC; 88313-TC; 93005; 93010; 99285-25; C9803; J1459; P9034; Q5119; Q9967; U0003; U0005

== ENCOUNTER 2021-03-24 07:51 | Day surgery (SDC) | payer BC ==
[2021-03-24] MEDS ORDERED: ACETAMINOPHEN 325 MG TABLET (FP) PO ONE (08:00)
[2021-03-24] MEDS ORDERED: CYANOCOBALAMIN (VITAMIN B-12) 1000 MCG/1 ML VIAL IM ONE (08:00)
[2021-03-24] MEDS ORDERED: SODIUM CHLORIDE 250 ML IV ONE (08:00)
[2021-03-24] MEDS ORDERED: DIPHENHYDRAMINE 50 MG in SODIUM CHLORIDE 50 ML IVPB ONE (08:30)
[2021-03-24] MEDS ORDERED: RITUXIMAB ABBS IVPB ONE (09:00)
[2021-03-24] MEDS ORDERED: SODIUM CHLORIDE IVPB ONE (09:00)
[2021-03-24] MEDS ORDERED: DEXAMETHASONE INJECTION 10 MG in SODIUM CHLORIDE 50 ML IVPB ONE (10:00)
[2021-03-24 14:45] VITALS: BP 119/74; PULSE 92; TEMP 98.9
[2021-03-24] MEDS ORDERED: SODIUM CHLORIDE 150 ML IV ONE (15:00)
== END 2021-03-24 14:00 | disposition home or self-care (01) ==
LOC: JONCCHEMO 07:51
PROVIDERS: ATTEND Internal Medicine Hematology & Oncology
DX: Z51.11 Encounter for antineoplastic chemotherapy (principal); C85.10 Unspecified B-cell lymphoma, unspecified site; D69.6 Thrombocytopenia, unspecified; D68.61 Antiphospholipid syndrome
CPT/HCPCS: 96372; 96375; 96413; 96415; J1100; Q5115

== ENCOUNTER 2021-03-31 07:07 | Day surgery (SDC) | payer BC, OTHER ==
[2021-03-31] MEDS ORDERED: IRON SUCROSE INJECTION 200 MG in SODIUM CHLORIDE 100 ML IVPB ONE (09:00)
[2021-03-31] MEDS ORDERED: SODIUM CHLORIDE 250 ML IV ONE (09:00)
[2021-03-31 09:04] LABS: BASO % 1.3 % (0-2.0); EOS % 1.2 % (0-4.5); HEMATOCRIT 36.7 % (32.4-45.2); HEMOGLOBIN 12.6 GM/dL (10.7-15.3); LYMPH % 21.4 % (8-40); MCH 29.4 pg (25.7-33.7); MCHC 34.3 g/dl (32.0-36.0); MEAN CELL VOLUME 85.7 fl (80-96); MEAN PLT VOLUME 11.8 fl (7.5-11.1); MONO % 8.9 % (3.8-10.2); NEUT % 67.2 % (42.8-82.8); RBC 4.28 M/mm3 (3.60-5.2); RDW 15.2 % (11.6-15.6); WHITE BLOOD COUNT 5.2 K/mm3 (4.0-10.0)
[2021-03-31 09:24] LABS: PLATELET COUNT 34 10^3/uL (134-434)
[2021-03-31 09:27] LABS: CALCIUM 8.5 mg/dL (8.5-10.1)
[2021-03-31 09:29] LABS: ALBUMIN 3.7 g/dl (3.4-5.0); BLOOD UREA NITROGEN 14.8 mg/dL (7-18); MAGNESIUM 2.1 mg/dL (1.8-2.4)
[2021-03-31] MEDS ORDERED: CYANOCOBALAMIN (VITAMIN B-12) 1000 MCG/1 ML VIAL IM ONE (09:30)
[2021-03-31] MEDS ORDERED: DEXAMETHASONE INJECTION 10 MG, DIPHENHYDRAMINE 25 MG in SODIUM CHLORIDE 100 ML IVPB ONE (09:30)
[2021-03-31] MEDS ORDERED: ACETAMINOPHEN 325 MG TABLET (FP) PO ONE (09:30)
[2021-03-31 09:31] LABS: BILIRUBIN,DIRECT 0.1 mg/dL (0.0-0.2); CREATININE 0.5 mg/dL (0.55-1.3); URIC ACID 3.6 mg/dL (2.6-7.2)
[2021-03-31 09:33] LABS: TOT PROT 7.8 g/dl (6.4-8.2)
[2021-03-31 09:34] LABS: BILIRUBIN,TOTAL 0.4 mg/dL (0.2-1)
[2021-03-31] MEDS ORDERED: RITUXIMAB ABBS IVPB ONE (10:00)
[2021-03-31] MEDS ORDERED: SODIUM CHLORIDE IVPB ONE (10:00)
[2021-03-31 15:50] VITALS: TEMP 98.3
[2021-03-31 17:18] VITALS: BP 126/76; PULSE 92
== END 2021-03-31 13:10 | disposition home or self-care (01) ==
LOC: JONCCHEMO 07:07
PROVIDERS: ATTEND Internal Medicine Hematology & Oncology
PROC: 3E03305 Introduction of Other Antineoplastic into Peripheral Vein, Percutaneous Approach (ICD-10-PCS; principal; 2021-03-31)
PROC: 3E013GC Introduction of Other Therapeutic Substance into Subcutaneous Tissue, Percutaneous Approach (ICD-10-PCS; 2021-03-31)
DX: Z51.11 Encounter for antineoplastic chemotherapy (principal); C85.10 Unspecified B-cell lymphoma, unspecified site; D69.6 Thrombocytopenia, unspecified; D68.61 Antiphospholipid syndrome; M32.8 Other forms of systemic lupus erythematosus
CPT/HCPCS: 36415; 80048; 80076; 83615; 83735; 84550; 85025; 87070; 96367; 96372; 96413; 96415; J1100; J1756; Q5115

== ENCOUNTER 2021-04-07 06:38 | Day surgery (SDC) | payer BC, OTHER ==
[2021-04-07] MEDS ORDERED: SODIUM CHLORIDE 250 ML IV ONE (09:00)
[2021-04-07] MEDS ORDERED: IRON SUCROSE INJECTION 200 MG in SODIUM CHLORIDE 100 ML IVPB ONE (09:00)
[2021-04-07] MEDS ORDERED: CYANOCOBALAMIN (VITAMIN B-12) 1000 MCG/1 ML VIAL IM ONE (09:30)
[2021-04-07] MEDS ORDERED: DEXAMETHASONE INJECTION 10 MG, DIPHENHYDRAMINE 25 MG in SODIUM CHLORIDE 100 ML IVPB ONE (09:30)
[2021-04-07] MEDS ORDERED: ACETAMINOPHEN 325 MG TABLET (FP) PO ONE (09:30)
[2021-04-07] MEDS ORDERED: SODIUM CHLORIDE IVPB ONE (10:00)
[2021-04-07] MEDS ORDERED: RITUXIMAB ABBS IVPB ONE (10:00)
[2021-04-07 18:04] VITALS: BP 117/69; PULSE 92; TEMP 98.3
== END 2021-04-07 13:00 | disposition home or self-care (01) ==
LOC: JONCCHEMO 06:38
PROVIDERS: ATTEND Internal Medicine Hematology & Oncology
DX: Z51.11 Encounter for antineoplastic chemotherapy (principal); C85.10 Unspecified B-cell lymphoma, unspecified site; D69.6 Thrombocytopenia, unspecified; D68.61 Antiphospholipid syndrome; M32.8 Other forms of systemic lupus erythematosus
CPT/HCPCS: 96367; 96413; 96415; J1100; J1756; Q5115

== ENCOUNTER 2021-04-09 11:23 | Emergency (ER) | payer BC, OTHER ==
[2021-04-09 11:30] VITALS: BP 121/77; PULSE 89; TEMP 98.3; BMI 25.2
[2021-04-09] MEDS ORDERED: ACETAMINOPHEN 650 MG/20.3 ML ORAL SOLUTION (CUPS) PO ONE (12:07)
[2021-04-09] MEDS ORDERED: ACETAMINOPHEN 500 MG TABLET (FP) ONE (12:10)
[2021-04-09] MEDS ORDERED: DEXAMETHASONE LIQUID 0.5 MG/5 ML PO ONE (12:44)
[2021-04-09] MEDS ORDERED: DEXAMETHASONE SOD PHOSPHATE 10 MG/1 ML VIAL ONE (12:49)
== END 2021-04-09 13:52 | disposition home or self-care (01) ==
LOC: JERFT 11:23
DX: J02.9 Acute pharyngitis, unspecified (principal)
CPT/HCPCS: 87880; 99283-25

== ENCOUNTER 2021-04-15 06:57 | Day surgery (SDC) | payer BC, OTHER ==
[2021-04-15] MEDS ORDERED: SODIUM CHLORIDE 250 ML IV ONE (09:00)
[2021-04-15] MEDS ORDERED: DEXAMETHASONE SODIUM PHOSPHATE 10 MG, DIPHENHYDRAMINE 25 MG in SODIUM CHLORIDE 100 ML IVPB ONE (10:00)
[2021-04-15] MEDS ORDERED: ACETAMINOPHEN 325 MG TABLET (FP) PO ONE (10:00)
[2021-04-15] MEDS ORDERED: RITUXIMAB ABBS IVPB ONE (10:30)
[2021-04-15] MEDS ORDERED: SODIUM CHLORIDE IVPB ONE (10:30)
[2021-04-15 15:57] VITALS: BP 117/65; PULSE 90; TEMP 98.7
== END 2021-04-15 12:30 | disposition home or self-care (01) ==
LOC: JONCCHEMO 06:57
PROVIDERS: ATTEND Internal Medicine Hematology & Oncology
DX: Z51.11 Encounter for antineoplastic chemotherapy (principal); C85.10 Unspecified B-cell lymphoma, unspecified site; D69.6 Thrombocytopenia, unspecified; D68.61 Antiphospholipid syndrome; M32.8 Other forms of systemic lupus erythematosus
CPT/HCPCS: 96361; 96367; 96413; 96415; Q5115

== ENCOUNTER 2021-05-12 07:47 | Day surgery (SDC) | payer BC, OTHER ==
[2021-05-12] MEDS ORDERED: DEXAMETHASONE SODIUM PHOSPHATE 6 MG, DIPHENHYDRAMINE 25 MG in SODIUM CHLORIDE 100 ML IVPB ONE ×2 (09:00→10:30)
[2021-05-12] MEDS ORDERED: SODIUM CHLORIDE 250 ML IV ONE (10:00)
[2021-05-12] MEDS ORDERED: ACETAMINOPHEN 325 MG TABLET (FP) PO ONE (10:30)
[2021-05-12] MEDS ORDERED: SODIUM CHLORIDE IVPB ONE (11:00)
[2021-05-12] MEDS ORDERED: RITUXIMAB ABBS IVPB ONE (11:00)
[2021-05-12 16:14] VITALS: TEMP 99.2
[2021-05-12 16:16] VITALS: BP 119/68; PULSE 84
== END 2021-05-12 12:40 | disposition home or self-care (01) ==
LOC: JONCCHEMO 07:47
PROVIDERS: ATTEND Internal Medicine Hematology & Oncology
DX: Z51.11 Encounter for antineoplastic chemotherapy (principal); C85.10 Unspecified B-cell lymphoma, unspecified site; D69.6 Thrombocytopenia, unspecified; D68.61 Antiphospholipid syndrome; M32.8 Other forms of systemic lupus erythematosus
CPT/HCPCS: 96367; 96413; 96415; Q5115

== ENCOUNTER 2021-06-09 07:06 | Day surgery (SDC) | payer BC, OTHER ==
[2021-06-09] MEDS ORDERED: SODIUM CHLORIDE 250 ML IV ONE (09:00)
[2021-06-09] MEDS ORDERED: ACETAMINOPHEN 325 MG TABLET (FP) PO ONE (10:00)
[2021-06-09] MEDS ORDERED: DEXAMETHASONE SODIUM PHOSPHATE 6 MG, DIPHENHYDRAMINE 25 MG in SODIUM CHLORIDE 100 ML IVPB ONE (10:00)
[2021-06-09] MEDS ORDERED: SODIUM CHLORIDE IVPB ONE (10:30)
[2021-06-09] MEDS ORDERED: RITUXIMAB ABBS IVPB ONE (10:30)
[2021-06-09 15:02] VITALS: BP 116/75; PULSE 89; TEMP 98.1
== END 2021-06-09 13:25 | disposition home or self-care (01) ==
LOC: JONCCHEMO 07:06
PROVIDERS: ATTEND Internal Medicine Hematology & Oncology
PROC: 3E03305 Introduction of Other Antineoplastic into Peripheral Vein, Percutaneous Approach (ICD-10-PCS; principal; 2021-06-09)
PROC: 3E033GC Introduction of Other Therapeutic Substance into Peripheral Vein, Percutaneous Approach (ICD-10-PCS; 2021-06-09)
PROC: 3E0337Z Introduction of Electrolytic and Water Balance Substance into Peripheral Vein, Percutaneous Approach (ICD-10-PCS; 2021-06-09)
DX: Z51.11 Encounter for antineoplastic chemotherapy (principal); C85.10 Unspecified B-cell lymphoma, unspecified site
CPT/HCPCS: 96367; 96413; 96415; Q5115

== ENCOUNTER 2021-07-07 07:31 | Day surgery (SDC) | payer BC, OTHER ==
[2021-07-07] MEDS ORDERED: SODIUM CHLORIDE 250 ML IV ONE (09:00)
[2021-07-07] MEDS ORDERED: DEXAMETHASONE SODIUM PHOSPHATE 6 MG, DIPHENHYDRAMINE 25 MG in SODIUM CHLORIDE 100 ML IVPB ONE (09:30)
[2021-07-07] MEDS ORDERED: ACETAMINOPHEN 325 MG TABLET (FP) PO ONE (09:30)
[2021-07-07] MEDS ORDERED: SODIUM CHLORIDE IVPB ONE (10:00)
[2021-07-07] MEDS ORDERED: RITUXIMAB ABBS IVPB ONE (10:00)
[2021-07-07 15:43] VITALS: TEMP 98.4
[2021-07-07 15:44] VITALS: BP 121/69; PULSE 82
== END 2021-07-07 13:45 | disposition home or self-care (01) ==
LOC: JONCCHEMO 07:31
PROVIDERS: ATTEND Internal Medicine Hematology & Oncology
DX: D69.6 Thrombocytopenia, unspecified (principal); D68.61 Antiphospholipid syndrome; B18.1 Chronic viral hepatitis B without delta-agent; E61.1 Iron deficiency; M32.9 Systemic lupus erythematosus, unspecified
CPT/HCPCS: 96361; 96367; 96413; 96415; Q5115

== ENCOUNTER 2021-08-07 08:05 | Day surgery (SDC) | payer BC, OTHER ==
[~2021-08-07 08:05] MED LIST: ACETAMINOPHEN 325 MG TABLET (FP) PO ONE; DEXAMETHASONE SODIUM PHOSPHATE 4 MG, DIPHENHYDRAMINE 25 MG in SODIUM CHLORIDE 100 ML IVPB ONE; RITUXIMAB ABBS IVPB ONE; SODIUM CHLORIDE 250 ML IV ONE; SODIUM CHLORIDE IVPB ONE
[2021-08-07] MEDS ORDERED: SODIUM CHLORIDE 250 ML IV ONE (09:00)
[2021-08-07] MEDS ORDERED: DEXAMETHASONE SODIUM PHOSPHATE 4 MG, DIPHENHYDRAMINE 25 MG in SODIUM CHLORIDE 100 ML IVPB ONE (10:00)
[2021-08-07] MEDS ORDERED: ACETAMINOPHEN 325 MG TABLET (FP) PO ONE (10:00)
[2021-08-07] MEDS ORDERED: RITUXIMAB ABBS IVPB ONE (10:30)
[2021-08-07] MEDS ORDERED: SODIUM CHLORIDE IVPB ONE (10:30)
[2021-08-07 16:10] VITALS: BP 117/75; PULSE 84; TEMP 98.5
== END 2021-08-07 14:15 | disposition home or self-care (01) ==
LOC: JONCCHEMO 08:05
PROVIDERS: ATTEND Internal Medicine Hematology & Oncology
DX: Z51.11 Encounter for antineoplastic chemotherapy (principal); C85.10 Unspecified B-cell lymphoma, unspecified site
CPT/HCPCS: 96367; 96413; 96415; Q5115

== ENCOUNTER 2021-10-03 13:13 | Emergency (ER) | payer OTHER ==
[2021-10-03 13:32] VITALS: BP 110/70; PULSE 92; TEMP 98.2; BMI 25.4
[2021-10-03] MEDS ORDERED: morphine CARPU-JECT 2 MG/1 ML DISP.SYRIN IVPUSH ONE (14:58)
[2021-10-03 15:04] LABS: BASO % 1.2 % (0-2.0); HEMATOCRIT 38.5 % (32.4-45.2); HEMOGLOBIN 13.2 GM/dL (10.7-15.3); MCH 29.8 pg (25.7-33.7); MCHC 34.4 g/dl (32.0-36.0); MEAN CELL VOLUME 86.6 fl (80-96); MEAN PLT VOLUME 9.1 fl (7.5-11.1); MONO % 11.9 % (3.8-10.2); NEUT % 71.9 % (42.8-82.8); PLATELET COUNT 181 10^3/uL (134-434); RBC 4.45 M/mm3 (3.60-5.2); RDW 13.7 % (11.6-15.6); WHITE BLOOD COUNT 4.8 K/mm3 (4.0-10.0)
[2021-10-03 15:09] LABS: INR 1.1 (0.83-1.09); PROTHROMBIN TIME (PATIENT) 12.3 SEC (9.7-13.0)
[2021-10-03 15:12] LABS: ACTIVATED PTT 67.6 SECONDS (25.2-36.5)
[2021-10-03 15:35] LABS: ALBUMIN 3.7 g/dl (3.4-5.0); BILIRUBIN,TOTAL 0.4 mg/dL (0.2-1); BLOOD UREA NITROGEN 17.3 mg/dL (7-18); CALCIUM 8.8 mg/dL (8.5-10.1); CREATININE 0.8 mg/dL (0.55-1.3); TOT PROT 7.6 g/dl (6.4-8.2)
[2021-10-03 16:26] LABS: CALCIUM 8.5 mg/dL (8.5-10.1)
[2021-10-03 16:27] LABS: ALBUMIN 3.6 g/dl (3.4-5.0); BLOOD UREA NITROGEN 17.5 mg/dL (7-18)
[2021-10-03 16:30] LABS: CREATININE 0.7 mg/dL (0.55-1.3)
[2021-10-03 16:32] LABS: BILIRUBIN,TOTAL 0.3 mg/dL (0.2-1); TOT PROT 6.8 g/dl (6.4-8.2)
== END 2021-10-03 20:31 | disposition home or self-care (01) ==
LOC: JER 13:13
PROC: 3E033NZ Introduction of Analgesics, Hypnotics, Sedatives into Peripheral Vein, Percutaneous Approach (ICD-10-PCS; principal; 2021-10-03)
DX: U07.1 COVID-19 (principal); R10.9 Unspecified abdominal pain
CPT/HCPCS: 36415; 74177-TC; 76705-TC; 80053; 84703; 85025; 85610; 85730; 93005; 93010; 99284-25; C9803; Q9967; U0003; U0005

== ENCOUNTER 2023-04-05 23:32 | Emergency (ER) | payer OTHER ==
[2023-04-05 23:43] VITALS: BP 162/88; PULSE 75; RESP 18; TEMP 97.6; BMI 25.0
[2023-04-06] MEDS ORDERED: SODIUM CHLORIDE 0.9% 500 ML INFUS.BAG IV ONE (01:49)
[2023-04-06] MEDS ORDERED: ACETAMINOPHEN 1000 MG/100 ML BAG IVPB ONE (01:49)
[2023-04-06] MEDS ORDERED: METOCLOPRAMIDE HCL INJECTION 10 MG/2 ML VIAL IVPUSH ONE (01:49)
[2023-04-06] MEDS ORDERED: ACETAMINOPHEN INJECTION 100 ML IVPB ONE (02:14)
[2023-04-06] MEDS ORDERED: METOCLOPRAMIDE HCL INJECTION 10 MG/2 ML VIAL ONE (02:14)
[2023-04-06 02:23] LABS: EOS % 2.1 % (0-4.5); HEMATOCRIT 38.1 % (32.4-45.2); HEMOGLOBIN 12.9 GM/dL (10.7-15.3); LYMPH % 30.7 % (8-40); MCH 29.2 pg (25.7-33.7); MCHC 33.9 g/dl (32.0-36.0); MEAN CELL VOLUME 86.2 fl (80-96); MEAN PLT VOLUME 8.1 fl (7.5-11.1); MONO % 7.7 % (3.8-10.2); NEUT % 58.5 % (42.8-82.8); PLATELET COUNT 208 10^3/uL (134-434); RBC 4.42 M/mm3 (3.60-5.2); RDW 13.9 % (11.6-15.6); WHITE BLOOD COUNT 5.8 K/mm3 (4.0-10.0)
[2023-04-06 02:37] LABS: POTASSIUM 4.1 mmol/L (3.5-5.1)
[2023-04-06 02:40] LABS: ALBUMIN 3.8 g/dl (3.4-5.0); BLOOD UREA NITROGEN 13.5 mg/dL (7-18)
[2023-04-06 02:42] LABS: CREATININE 0.5 mg/dL (0.55-1.3)
[2023-04-06 02:44] LABS: BILIRUBIN,TOTAL 0.2 mg/dL (0.2-1); TOT PROT 6.8 g/dl (6.4-8.2)
[2023-04-06] MEDS ORDERED: KETOROLAC TROMETHAMINE 15 MG/ML VIAL IVPUSH ONE (03:01)
[2023-04-06] MEDS ORDERED: KETOROLAC TROMETHAMINE 15 MG/ML VIAL ONE (03:02)
== END 2023-04-06 03:42 | disposition home or self-care (01) ==
LOC: JER 23:32
PROC: 3E033NZ Introduction of Analgesics, Hypnotics, Sedatives into Peripheral Vein, Percutaneous Approach (ICD-10-PCS; principal; 2023-04-06)
PROC: 3E0333Z Introduction of Anti-inflammatory into Peripheral Vein, Percutaneous Approach (ICD-10-PCS; 2023-04-06)
PROC: 3E033GC Introduction of Other Therapeutic Substance into Peripheral Vein, Percutaneous Approach (ICD-10-PCS; 2023-04-06)
DX: R51.9 Headache, unspecified (principal); H53.71 Glare sensitivity; R11.2 Nausea with vomiting, unspecified
CPT/HCPCS: 36415; 70450-TC; 80053; 84703; 85025; 99284-25